=== PATIENT | female | born 1975 | race Two or more races ===

== ENCOUNTER 2024-05-28 12:53 | Emergency (ER) | payer OTHER ==
[~2024-05-28] VITALS: Ht 165.1 cm; Wt 69.5 kg
--- NOTE | 2024-05-28 13:07 | ED.PDOC ---
Cecil. trauma (HPI) HPI Comments 48 y.o female presents to the ED for a chief complaint of dizziness that started this morning around 9am. Patient describes dizziness as room spinning with no syncopal episodes today. 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 Patient was seen at a hospital yesterday for her left sided body pain and prescribed pain medication. Patient reports at the time of her fall and hospital visit, she did not feel dizzy. Patient at this time is feeling discomfort across her forehead but denies pain. 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 MANAGER TRADE MARKETING History Family History Family History: Family hx of DM, Family hx of Cancer, Family hx of heart brant Social History Smoker: Non-Smoker Alcohol: Denies ETOH Use Drugs: Denies Drug Use Lives In: Home Constitutional: denies: chills, diaphoresis, fatigue, fever, malaise, sweats, weakness, others EENTM: denies: blurred vision, double vision, ear bleeding, ear discharge, ear drainage, ear pain, ear ringing, eye pain, eye redness, hearing loss, mouth pain, mouth swelling, nasal discharge, nose bleeding, nose congestion, nose pain, photophobia, tearing, throat pain, throat swelling, voice changes, others Respiratory: denies: cough, hemoptysis, orthopnea, SOB at rest, shortness of breath, SOB with excertion, stridor, wheezing, others Cardiovascular: denies: chest pain, dizzy spells, diaphoresis, Dyspnea on exertion, edema, irregular heart beat, left arm pain, lightheadedness, palpitations, PND, syncope, others Gastrointestinal: denies: abdomen distended, abdominal pain, blood streaked bowels, constipated, diarrhea, dysphagia, difficulty swallowing, hematemesis, melena, nausea, poor appetite, poor fluid intake, rectal bleeding, rectal pain, vomiting, others Genitourinary: denies: abnormal vagina bleeding, burning, dyspareunia, dysuria, flank pain, frequency, hematuria, incontinence, pain, , vagina discharge, urgency, others Neurological: reports: dizziness; denies: fainting, headache, left sided numbness, left sided weakness, numbness, paresthesia, pre-existing deficit, right sided numbness, right sided weakness, seizure, speech problems, tingling, tremors, weakness, others Musculoskeletal: denies: back pain, gout, joint pain, joint swelling, muscle pain, muscle stiffness, neck pain, others Integumetry: denies: bruises, change in color, change in hair/nails, dryness, laceration, lesions, lumps, rash, wounds, others Allergic/Immunocompromised: denies: Difficulty Healing, Frequent Infections, Hives, Itching, others Hematologic/Lymphatic: denies: anemia, blood clots, easy bleeding, easy bruising, swollen glands, others Endocrine: denies: excessive hunger, excessive sweating, excessive thirst, excessive urination, flushing, intolerance to cold, intolerance to heat, unexplained weight gain, unexplained weight loss, others Psychiatric: denies: anxiety, bipolar disorder, depression, hopeless, panic disorder, schizophrenia, sleepless, suicidal, others All Other Systems: Reviewed and Negative Physical Exam General Appearance: No Apparent Distress HEENT: Normal ENT Inspection, Pharynx Normal, TMs Normal Neck: Full Range of Motion, Non-Tender, Normal, Normal Inspection Respiratory: Chest Non-Tender, Lungs Clear, No Accessory Muscle Use, No Respiratory Distress, Normal Breath Sounds Cardiovascular: No Edema, No JVD, No Murmur, No Gallop, Normal Peripheral Pulses, Regular Rate/Rhythm Breast Exam: Deferred Gastrointestinal: No Organomegaly, Non Tender, No Pulsatile Mass, Normal Bowel Sounds, Soft Genitalia: Deferred Pelvic: Deferred Rectal: Deferred Extremities: No calf tenderness, Normal capillary refill, Normal inspection, Normal range of motion, Non-tender, No pedal edema Musculoskeletal : Apperance: Normal Neurologic: Alert, principal strategist II-XII nml as Tested, Motor Weakness, Normal Affect, Normal Mood, No Sensory Deficits Cerebellar Function: Normal Reflexes: Normal Skin: Dry, Normal Color, Warm Lymphatic: No Adenopathy Was a procedure done? Was a procedure done?: No Differential Diagnosis Multiple Trauma: Closed Head Injury, Cerebral Contusion, Contusion X-Ray, Labs, Meds, VS Vital Signs Date Time Temp Pulse Resp B/P (MAP) Pulse Ox O2 Delivery O2 Flow Rate FiO2 05/28/24 14:07 78 14 99 Room Air* 0 21 05/28/24 13:20 98.8 87 18 131/89 (103) 98 98.8 05/28/24 13:06 81 Lab Test 05/28/24 14:57 05/28/24 13:10 Range/Units Urine Color Light-yellow Yellow Urine Clarity Turbid H Clear Urine pH 6.0 5.0-9.0 Urine Specific [place] 1.015 1.001-1.035 Urine Protein Trace H Negative Urine Ketones 1+ H Negative Urine Blood Negative Negative /uL Urine Nitrite Negative Negative Urine Bilirubin Negative Negative Urine Urobilinogen Normal Negative mg/dL Urine Leukocyte Esterase Negative Negative /uL Urine RBC 3 0 - 4 /hpf Urine Microscopic WBC 3 0-5 /HPF Urine Squamous Epithelial Cells Many <5 /hpf Urine Bacteria Few H None Seen /hpf Urine Mucus Few None Seen Urine Glucose Normal Normal mg/dL White Blood Count 7.7 4.4-10.8 10^3/uL Red Blood Count 4.61 4.0-5.20 10^6/uL Hemoglobin 13.3 12.2-16.2 g/dL Hematocrit 40.3 36.0-46.0 % Mean Corpuscular Volume 87.3 80.0-100.0 fL Mean Corpuscular Hemoglobin 28.9 28.0-32.0 pg Mean Corpuscular Hemoglobin Concent 33.0 32.0-36.0 g/dL Red Cell Distribution Width 13.5 11.8-14.3 % Platelet Count 216 140-450 10^3/uL Mean Platelet Volume 8.7 6.9-10.8 fL Neutrophils (%) (Auto) 67.1 37.0-80.0 % Lymphocytes (%) (Auto) 24.6 10.0-50.0 % Monocytes (%) (Auto) 6.0 0.0-12.0 % Eosinophils (%) (Auto) 1.9 0.0-7.0 % Basophils (%) (Auto) 0.4 0.0-2.0 % Neutrophils # (Auto) 5.1 1.6-8.6 10 ^3/uL Lymphocytes # (Auto) 1.9 0.4-5.4 10 ^3/uL Monocytes # (Auto) 0.5 0-1.3 10 ^3/uL Eosinophils # (Auto) 0.1 0-0.8 10 ^3/uL Basophils # (Auto) 0 0-0.2 10 ^3/uL Nucleated Red Blood Cells 0.0 % Sodium Level 139 136-145 mmol/L Potassium Level 4.0 3.5-5.1 mmol/L Chloride Level 107 98-107 mmol/L Carbon Dioxide Level 25 20-31 mmol/L Anion Gap 7 5-15 Blood Urea Nitrogen 7 L 9-23 mg/dL Creatinine 0.75 0.550-1.02 mg/dL Glomerular Filtration Rate Calc 98 >90 mL/min BUN/Creatinine Ratio 9.3 L 10.0-20.0 Serum Glucose 97 74-106 mg/dL Calcium Level 9.5 8.7-10.4 mg/dL Current Medications Medications (Trade) Dose Ordered Sig/Sierra Route Start Time Stop Time Status Last Admin Sodium Chloride 1,000 ml @ 1,000 mls/hr Q1H ONCE IV 05/28/24 14:15 05/28/24 15:14 DC 05/28/24 14:22 Acetaminophen/ Hydrocodone Bitart ([place] 10/325MG Tab) 1 tab ONCE ONCE PO 05/28/24 14:15 05/28/24 14:16 DC 05/28/24 14:22 EXAM: CT HEAD WITHOUT CONTRAST IMPRESSION: 1. No acute intracranial process. The CBC is within normal limits The chemistry panel is within normal limits. The patient was given [place] The patient was an IV Hep-Lock and was given normal saline at 1 L bolus. The patient's urine test is negative At this time, the patient was feeling somewhat better The patient was told to follow up with the [facility] Images Reviewed?: Images reviewed and evaluated by me Time of 1ST Reevaluation: 13:03 Reevaluation 1ST: Unchanged Time of 2ND Reevaluation: 16:07 Reevaluation 2ND: Improved Patient Education/Counseling: Diagnosis, Treatment, Prognosis, Need For Follow Up Family Education/Counseling: Diagnosis, Treatment, Prognosis, Need For Follow Up Departure 1 Departure Time of Disposition: 16:07 Impression: Primary Impression: Postconcussion syndrome Disposition: 01 HOME / SELF CARE / HOMELESS Condition: Fair Discharged With: Self, Relative Critical Care Note Critical Care Time?: No Stability Stability form required: No Heart Score Heart Score: Heart Score Response (Comments) Value History N/A 0 EKG N/A 0 Age N/A 0 Risk Factors N/A 0 Troponin N/A 0 Total 0 I personally scribed for HARJEET HERNANDEZ MD ([email or web address]) on 05/28/24 at 13:07. Electronically submitted by Wen Bolden ([employer]). I personally scribed for HARJEET HERNANDEZ MD ([email or web address]) on 05/28/24 at 15:17. Electronically submitted by Wen Bolden ([employer]). HARJEET HERNANDEZ MD May 28, 2024 13:07
[2024-05-28 13:36] LABS: Basophils # (auto) 0 10 ^3/uL (0-0.2); Basophils % (auto) 0.4 % (0.0-2.0); Eosinophils # (auto) 0.1 10 ^3/uL (0-0.8); Eosinophils % (auto) 1.9 % (0.0-7.0); Hematocrit 40.3 % (36.0-46.0); Hemoglobin 13.3 g/dL (12.2-16.2); Lymphocytes # (auto) 1.9 10 ^3/uL (0.4-5.4); Lymphocytes % (auto) 24.6 % (10.0-50.0); Mean Corpuscular Hemoglobin 28.9 pg (28.0-32.0); Mean Corpuscular Volume 87.3 fL (80.0-100.0); Monocytes # (auto) 0.5 10 ^3/uL (0-1.3); Neutrophils # (auto) 5.1 10 ^3/uL (1.6-8.6); Neutrophils % (auto) 67.1 % (37.0-80.0); Platelet Count (auto) 216 10^3/uL (140-450); Red Blood Cells 4.61 10^6/uL (4.0-5.20); Red Cell Distribution Width 13.5 % (11.8-14.3); White Blood Cell 7.7 10^3/uL (4.4-10.8)
[2024-05-28 13:41] LABS: Chloride 107 mmol/L (98-107); Sodium 139 mmol/L (136-145)
[2024-05-28 13:42] LABS: Anion Gap 7 (5-15); Calcium 9.5 mg/dL (8.7-10.4); Carbon Dioxide 25 mmol/L (20-31)
[2024-05-28 13:47] LABS: BUN/Creatinine Ratio 9.3 (10.0-20.0); Glucose 97 mg/dL (74-106)
[2024-05-28 13:53] LABS: Blood Urea Nitrogen 7 mg/dL (9-23)
--- NOTE | 2024-05-28 13:56 | ECG ---
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
[2024-05-28 14:07] VITALS: PULSE 78; RESP 14; O2SAT 99
--- NOTE | 2024-05-28 14:13 | DVH ---
EXAM: CT HEAD WITHOUT CONTRAST HISTORY: dizziness COMPARISON: None TECHNIQUE: Axial images were obtained and reformatted in coronal and sagittal planes. All CT scans at this medical facility are performed using dose modulation techniques as appropriate t o a performed exam including the following: Automated exposure control was utilized; adjustment of th e MA and/or KV according to patient size; and use of iterative reconstruction technique. CT Dose: CTDI volume is 54 mGy. Dose-length product is 970 mGy*cm FINDINGS: Supratentorial Region: No evidence for large acute territorial ischemia. No intracranial hemorrhage is noted. Posterior Fossa: No acute abnormality. Brainstem: Unremarkable. Sellar/Suprasellar Region: Unremarkable. Ventricles, Cisterns, Sulci: Age-appropriate. Orbits: Unremarkable. Paranasal Sinuses: Unremarkable. Mastoid Air Cells: Unremarkable. Vasculature: Unremarkable. Bones/Soft Tissues: No acute abnormality. Other: None. IMPRESSION: 1. No acute intracranial process.
[2024-05-28] MEDS: HYDROcodone-ACET 10/325MG TAB PO ONE (14:22)
[2024-05-28] MEDS: SODIUM CHLORIDE 0.9% 1,000 ML IV ONE (14:22)
[2024-05-28 15:17] LABS: Urine Bacteria FEW /hpf (None Seen); Urine Blood Negative /uL (Negative); Urine Clarity Turbid (Clear); Urine Color Light-Yellow (Yellow); Urine Mucus FEW (None Seen); Urine Protein, UAD TRACE (Negative); Urine Specific Gravity 1.015 (1.001-1.035); Urine Squamous Epithelial Cell MANY /hpf (<5); Urine Urobilinogen Normal (Negative); Urine WBC 3 /HPF (0-5)
[2024-05-28 16:24] VITALS: BP 131/89; PULSE 82; RESP 16; TEMP 98; O2SAT 97
== END 2024-05-28 16:24 | disposition home or self-care (01) ==
LOC: ER 12:53
DX: F07.81 Postconcussional syndrome (principal); M79.18 Myalgia, other site; Z98.51 Tubal ligation status
CPT/HCPCS: 36415; 70450; 80048; 81001; 85025; 93005; 99284; J7030

== ENCOUNTER 2024-05-31 04:14 | Emergency (ER) | payer OTHER ==
[~2024-05-31] VITALS: Ht 165.1 cm; Wt 78.0 kg
[2024-05-31 04:44] VITALS: BP 126/88; PULSE 102; RESP 13; TEMP 98.8; O2SAT 97
[2024-05-31] MEDS ORDERED: ACE3T PO (04:52)
--- NOTE | 2024-05-31 04:53 | ED.PDOC ---
HPI (NEURO) HPI Comments 48 year old female presents to ER with complaints of headache x 5 days. Patient states she's been experiencing intermittent headaches that started after hitting her head at work 5 days ago. Patient was seen and evaluated twice post head injury and had a ct of her head done that was normal along with having a cervical spine x-ray done. Patient presents back to ER today due to persistent headaches. She rates her current headache pain a 8/10 diffuse to right side of scalp with associated photophobia. Reports that she has been taking Motrin for pain with slight relief. Patient presents to ER ambulatory on arrival, alert oriented x4, with steady gait and denies any worsening symptoms since her last CT head was done. 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 History Family History Family History: Family hx of DM, Family hx of Cancer, Family hx of heart brant Social History Smoker: Non-Smoker Alcohol: Denies ETOH Use Drugs: Denies Drug Use Lives In: Home Constitutional: denies: chills, diaphoresis, fatigue, fever, malaise, sweats, weakness, others EENTM: reports: others (As stated in HPI) Respiratory: denies: cough, hemoptysis, orthopnea, SOB at rest, shortness of breath, SOB with excertion, stridor, wheezing, others Cardiovascular: denies: chest pain, dizzy spells, diaphoresis, Dyspnea on exertion, edema, irregular heart beat, left arm pain, lightheadedness, pa lpitations, PND, syncope, others Gastrointestinal: denies: abdomen distended, abdominal pain, blood streaked bowels, constipated, diarrhea, dysphagia, difficulty swallowing, hematemesis, melena, nausea, poor appetite, poor fluid intake, rectal bleeding, rectal pain, vomiting, others Genitourinary: denies: abnormal vagina bleeding, burning, dyspareunia, dysuria, flank pain, frequency, hematuria, incontinence, pain, , vagina discharge, urgency, others Neurological: denies: dizziness, fainting, headache, left sided numbness, left sided weakness, numbness, paresthesia, pre-existing deficit, right sided numbness, right sided weakness, seizure, speech problems, tingling, tremors, weakness, others Musculoskeletal: denies: back pain, gout, joint pain, joint swelling, muscle pain, muscle stiffness, neck pain, others Integumetry: denies: bruises, change in color, change in hair/nails, dryness, laceration, lesions, lumps, rash, wounds, others Allergic/Immunocompromised: denies: Difficulty Healing, Frequent Infections, Hives, Itching, others Hematologic/Lymphatic: denies: anemia, blood clots, easy bleeding, easy bruising, swollen glands, others Endocrine: denies: excessive hunger, excessive sweating, excessive thirst, excessive urination, flushing, intolerance to cold, intolerance to heat, unexplained weight gain, unexplained weight loss, others Psychiatric: denies: anxiety, bipolar disorder, depression, hopeless, panic disorder, schizophrenia, sleepless, suicidal, others Physical Exam General Appearance: No Apparent Distress HEENT: Normal ENT Inspection, PERRL/EOMI, Pharynx Normal, TMs Normal Neck: Full Range of Motion, Non-Tender, Normal Respiratory: Chest Non-Tender, Lungs Clear, No Accessory Muscle Use, No Respiratory Distress, Normal Breath Sounds Cardiovascular: No Murmur, No Gallop, Regular Rate/Rhythm Breast Exam: Deferred Gastrointestinal: NOT DONE Genitalia: Deferred Pelvic: Deferred Rectal: Deferred Extremities: No calf tenderness, Normal capillary refill, Normal range of motion Neurologic: Alert, cut off worker II-XII nml as Tested, No Motor Deficits, Normal Affect, Normal Mood, No Sensory Deficits Cerebellar Function: Normal Reflexes: Normal Skin: Dry, Normal Color, Warm Lymphatic: No Adenopathy Was a procedure done? Was a procedure done?: No Sedation Sedation?: No Differential Diagnosis (SZ) Headache: Cluster, CVA, Subarachnoid Hemorrhage, Subdural Hemorrhage, Mass Lesion, Other (fracture) X-Ray, Labs, Meds, VS Vital Signs Date Time Temp Pulse Resp B/P (MAP) Pulse Ox O2 Delivery O2 Flow Rate FiO2 05/31/24 04:44 98.8 102 13 126/88 (101) 97 98.8 05/31/24 04:44 102 13 97 Room Air 05/31/24 04:21 98.8 102 13 126/88 (101) 97 98.8 Current Medications Medications (Trade) Dose Ordered Sig/Sierra Route Start Time Stop Time Status Last Admin Ketorolac Tromethamine (Toradol Injection) 60 mg ONCE ONCE IM 05/31/24 05:00 05/31/24 05:01 DC 05/31/24 04:58 Previous chart visit reviewed Toradol 60 mg IM ordered Patient had improvement in symptoms and in no distress prior to discharge Advised on rest/no strenuous activity Workman's comp paperwork filled out Advised to follow up with PCP and workman's comp PCP in 1-2 days Patient alert and oriented x4 prior to discharge. Patient verbalized understanding and agreeable with current plan of care Advised to return to ER immediately if symptoms worsen Time of 1ST Reevaluation: 04:24 Reevaluation 1ST: N/A Time of 2ND Reevaluation: 05:30 Reevaluation 2ND: Improved Patient Education/Counseling: Diagnosis, Treatment, Prognosis, Need For Follow Up Family Education/Counseling: No Family Present Departure 1 Departure Time of Disposition: 05:32 Impression: Primary Impression: Postconcussion syndrome Disposition: 01 HOME / SELF CARE / HOMELESS Condition: Stable e-Prescriptions Acetaminophen W/ Codeine (Tylenol W/Cod #3) 1 Tab Tb 1 TAB PO Q6HPRN, #10 TAB 0 Refills Prov: CECIL RIVAS 05/31/24 Discharged With: Friend Critical Care Note Critical Care Time?: No Stability Stability form required: No Heart Score Heart Score: Heart Score Response (Comments) Value History N/A 0 EKG N/A 0 Age N/A 0 Risk Factors N/A 0 Troponin N/A 0 Total 0 CECIL RIVAS May 31, 2024 04:53
[2024-05-31] MEDS: KETOROLAC TROMETH 60MG/2ML VIAL IM ONE (04:58)
== END 2024-05-31 05:47 | disposition home or self-care (01) ==
LOC: ER 04:14
DX: F07.81 Postconcussional syndrome (principal); Z98.51 Tubal ligation status; Z87.442 Personal history of urinary calculi
CPT/HCPCS: 96372; 99283; J1885

== ENCOUNTER 2024-06-02 11:17 | Inpatient (IN) | payer OTHER ==
[~2024-06-02] VITALS: Ht 165.1 cm; Wt 84.2 kg
[~2024-06-02 11:17] MED LIST: ACE3T PO
--- NOTE | 2024-06-02 12:36 | ED.PDOC ---
History of Present Illness HPI Comments 48F presents to the ER w/ daughter band w/ no prior Hx associated to the c/c of dizziness. Daughter reports that the pt had a work incident that happened on Wednesday of 05/26/24 and was informed on Wednesday to go to the ER due form her getting dizzy and got a CT scan done. Pt states that she got blurred vision yesterday. PMHx of Kidney Stones. SHx of Tubal Ligation. Denies chills, fever, N/V/D, SOB, CP or no other associated symptoms, modifiers, recent injuries or sick contacts at this time. Chief Complaint: Dizziness Time Seen by MD: 12:00 Primary Care Provider: WORK COMP Reviewed Notes: Nurses Notes, Medications, Allergies Allergies: Coded Allergies: NO KNOWN ALLERGIES (Unverified , 05/31/24) Home Meds Active Scripts Acetaminophen W/ Codeine (Tylenol W/Cod #3) 1 Tab Tb, 1 TAB PO Q6HPRN, #10 TAB 0 Refills Prov:CECIL RIVAS 05/31/24 Information Source: Patient, Relative (Child) Mode of Arrival: Ambulatory Severity: Moderate Timing: Days Duration: Since onset, Days Prehospital treatment: None Past Medical History PAST MEDICAL HISTORY: Kidney Stones Surgical History: Tubal Ligation 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 TENDER History Family History Family History: Reviewed,noncontributory to illness, Unknown Social History Smoker: Non-Smoker Alcohol: Denies ETOH Use Drugs: Denies Drug Use Lives In: Home Constitutional: denies: chills, diaphoresis, fatigue, fever, malaise, sweats, weakness, others EENTM: reports: blurred vision; denies: double vision, ear bleeding, ear discharge, ear drainage, ear pain, ear ringing, eye pain, eye redness, hearing loss, mouth pain, mouth swelling, nasal discharge, nose bleeding, nose congestion, nose pain, photophobia, tearing, throat pain, throat swelling, voice changes, others Respiratory: denies: cough, hemoptysis, orthopnea, SOB at rest, shortness of breath, SOB with excertion, stridor, wheezing, others Cardiovascular: denies: chest pain, dizzy spells, diaphoresis, Dyspnea on exertion, edema, irregular heart beat, left arm pain, lightheadedness, palpitations, PND, syncope, others Gastrointestinal: denies: abdomen distended, abdominal pain, blood streaked bowels, constipated, diarrhea, dysphagia, difficulty swallowing, hematemesis, melena, nausea, poor appetite, poor fluid intake, rectal bleeding, rectal pain, vomiting, others Genitourinary: denies: abnormal vagina bleeding, burning, dyspareunia, dysuria, flank pain, frequency, hematuria, incontinence, pain, , vagina discharge, urgency, others Neurological: reports: dizziness; denies: fainting, headache, left sided numbness, left sided weakness, numbness, paresthesia, pre-existing deficit, right sided numbness, right sided weakness, seizure, speech problems, tingling, tremors, weakness, others Musculoskeletal: denies: back pain, gout, joint pain, joint swelling, muscle pain, muscle stiffness, neck pain, others Integumetry: denies: bruises, change in color, change in hair/nails, dryness, l aceration, lesions, lumps, rash, wounds, others Allergic/Immunocompromised: denies: Difficulty Healing, Frequent Infections, Hives, Itching, others Hematologic/Lymphatic: denies: anemia, blood clots, easy bleeding, easy bruising, swollen glands, others Endocrine: denies: excessive hunger, excessive sweating, excessive thirst, excessive urination, flushing, intolerance to cold, intolerance to heat, unexplained weight gain, unexplained weight loss, others Psychiatric: denies: anxiety, bipolar disorder, depression, hopeless, panic disorder, schizophrenia, sleepless, suicidal, others All Other Systems: Reviewed and Negative Physical Exam General Appearance: Moderate Distress, Normal HEENT: Normal ENT Inspection, Pharynx Normal, TMs Normal Neck: Full Range of Motion, Non-Tender, Normal, Normal Inspection Respiratory: Chest Non-Tender, Lungs Clear, No Accessory Muscle Use, No Respiratory Distress, Normal Breath Sounds Cardiovascular: No Edema, No JVD, No Murmur, No Gallop, Normal Peripheral Pulses, Regular Rate/Rhythm Breast Exam: Deferred Gastrointestinal: No Organomegaly, Non Tender, No Pulsatile Mass, Normal Bowel Sounds, Soft Genitalia: Deferred Pelvic: Deferred Rectal: Deferred Extremities: No calf tenderness, Normal capillary refill, Normal inspection, Normal range of motion, Non-tender, No pedal edema Musculoskeletal : Apperance: Normal Neurologic: Alert, manager school II-XII nml as Tested, No Motor Deficits, Normal Affect, Normal Mood, No Sensory Deficits Cerebellar Function: Normal Reflexes: Normal Skin: Dry, Normal Color, Warm Peripheral Pulses: 3+ Radial (R), 3+ Radial (L) Lymphatic: No Adenopathy Was a procedure done? Was a procedure done?: No Differential Dx Considerations may include: Autonomic disorder Electrolyte imbalance X-Ray, Labs, Meds, VS Vital Signs Date Time Temp Pulse Resp B/P (MAP) Pulse Ox O2 Delivery O2 Flow Rate FiO2 06/02/24 13:37 96 16 111/74 (86) 98 06/02/24 11:20 98.3 98 16 112/78 (89) 98 98.3 Lab Test 06/02/24 13:32 06/02/24 12:44 Range/Units Urine Color Colorless Yellow Urine Clarity Turbid H Clear Urine pH 5.5 5.0-9.0 Urine Specific [place] 1.009 1.001-1.035 Urine Protein Negative Negative Urine Ketones Negative Negative Urine Blood 3+ H Negative /uL Urine Nitrite Negative Negative Urine Bilirubin Negative Negative Urine Urobilinogen Normal Negative mg/dL Urine Leukocyte Esterase Negative Negative /uL Urine RBC 5 0 - 4 /hpf Urine Microscopic WBC 6 H 0-5 /HPF Urine Squamous Epithelial Cells Few <5 /hpf Urine Bacteria Few H None Seen /hpf Urine Glucose Normal Normal mg/dL White Blood Count 5.4 # 4.4-10.8 10^3/uL Red Blood Count 4.72 4.0-5.20 10^6/uL Hemoglobin 13.4 12.2-16.2 g/dL Hematocrit 40.2 36.0-46.0 % Mean Corpuscular Volume 85.3 80.0-100.0 fL Mean Corpuscular Hemoglobin 28.5 28.0-32.0 pg Mean Corpuscular Hemoglobin Concent 33.4 32.0-36.0 g/dL Red Cell Distribution Width 13.8 11.8-14.3 % Platelet Count 208 140-450 10^3/uL Mean Platelet Volume 8.5 6.9-10.8 fL Neutrophils (%) (Auto) 61.2 37.0-80.0 % Lymphocytes (%) (Auto) 29.8 10.0-50.0 % Monocytes (%) (Auto) 7.2 0.0-12.0 % Eosinophils (%) (Auto) 1.4 0.0-7.0 % Basophils (%) (Auto) 0.4 0.0-2.0 % Neutrophils # (Auto) 3.3 1.6-8.6 10 ^3/uL Lymphocytes # (Auto) 1.6 0.4-5.4 10 ^3/uL Monocytes # (Auto) 0.4 0-1.3 10 ^3/uL Eosinophils # (Auto) 0.1 0-0.8 10 ^3/uL Basophils # (Auto) 0 0-0.2 10 ^3/uL Nucleated Red Blood Cells 0.0 % Sodium Level 139 136-145 mmol/L Potassium Level 4.5 3.5-5.1 mmol/L Chloride Level 106 98-107 mmol/L Carbon Dioxide Level 26 20-31 mmol/L Anion Gap 7 5-15 Blood Urea Nitrogen 8 L 9-23 mg/dL Creatinine 0.76 0.550-1.02 mg/dL Glomerular Filtration Rate Calc 97 >90 mL/min BUN/Creatinine Ratio 10.5 10.0-20.0 Serum Glucose 93 74-106 mg/dL Calcium Level 9.7 8.7-10.4 mg/dL Patient alert. Having dizziness. Was seen recently in this hospital after a work related injury. Saturation pristine on room air. Hemoglobin within normal limits. She is ambulating. Reviewed her previous visit. CT scan recently done does not show any acute process. Possibly will need MRI. Explained to the patient. Continue monitoring. Time of 1ST Reevaluation: 12:30 Reevaluation 1ST: Unchanged Patient Education/Counseling: Diagnosis, Treatment, Prognosis Family Education/Counseling: Diagnosis, Treatment, Prognosis Departure 1 Departure Time of Disposition: 16:51 Impression: Primary Impression: Postconcussion syndrome Additional Impression: Autonomic disorder Disposition: 09 ADMITTED INPATIENT Admit to: Med Surg Condition: Guarded Critical Care Note Critical Care Time?: No Stability Stability form required: No Heart Score Heart Score: Heart Score Response (Comments) Value History N/A 0 EKG N/A 0 Age N/A 0 Risk Factors N/A 0 Troponin N/A 0 Total 0 I personally scribed for JONY SHIPLEY MD ([email or web address]) on 06/02/24 at 12:36. Electronically submitted by Martin Rodriguez ([email or web address]). I personally scribed for JONY SHIPLEY MD ([email or web address]) on 06/02/24 at 12:41. Electronically submitted by Martin Rodriguez ([email or web address]). JONY SHIPLEY MD Jun 02, 2024 12:36
[2024-06-02 12:59] LABS: Basophils # (auto) 0 10 ^3/uL (0-0.2); Basophils % (auto) 0.4 % (0.0-2.0); Eosinophils # (auto) 0.1 10 ^3/uL (0-0.8); Eosinophils % (auto) 1.4 % (0.0-7.0); Hematocrit 40.2 % (36.0-46.0); Hemoglobin 13.4 g/dL (12.2-16.2); Lymphocytes # (auto) 1.6 10 ^3/uL (0.4-5.4); Lymphocytes % (auto) 29.8 % (10.0-50.0); Mean Corpuscular Hemoglobin 28.5 pg (28.0-32.0); Mean Corpuscular Hgb Conc. 33.4 g/dL (32.0-36.0); Mean Corpuscular Volume 85.3 fL (80.0-100.0); Monocytes # (auto) 0.4 10 ^3/uL (0-1.3); Monocytes % (auto) 7.2 % (0.0-12.0); Neutrophils # (auto) 3.3 10 ^3/uL (1.6-8.6); Neutrophils % (auto) 61.2 % (37.0-80.0); Platelet Count (auto) 208 10^3/uL (140-450); Red Blood Cells 4.72 10^6/uL (4.0-5.20); Red Cell Distribution Width 13.8 % (11.8-14.3); White Blood Cell 5.4 10^3/uL (4.4-10.8)
[2024-06-02 13:07] LABS: Chloride 106 mmol/L (98-107); Potassium 4.5 mmol/L (3.5-5.1); Sodium 139 mmol/L (136-145)
[2024-06-02 13:08] LABS: Anion Gap 7 (5-15); Calcium 9.7 mg/dL (8.7-10.4); Carbon Dioxide 26 mmol/L (20-31)
[2024-06-02 13:13] LABS: BUN/Creatinine Ratio 10.5 (10.0-20.0); Glucose 93 mg/dL (74-106)
[2024-06-02 13:14] LABS: Blood Urea Nitrogen 8 mg/dL (9-23)
[2024-06-02 13:55] LABS: Urine Bacteria FEW /hpf (None Seen); Urine Blood 3+ /uL (Negative); Urine Clarity Turbid (Clear); Urine Color Colorless (Yellow); Urine Protein, UAD Negative (Negative); Urine Specific Gravity 1.009 (1.001-1.035); Urine Squamous Epithelial Cell FEW /hpf (<5); Urine Urobilinogen Normal (Negative); Urine WBC 6 /HPF (0-5); Urine pH 5.5 (5.0-9.0)
--- NOTE | 2024-06-02 18:13 | DVHHP2 ---
Admitting Diagnosis: Diplopia History of Present Illness 48F presents to the ER w/ daughter band w/ no prior Hx associated to the c/c of dizziness. Daughter reports that the pt had a work incident that happened on Wednesday of 05/26/24 and was informed on Wednesday to go to the ER due form her getting dizzy and got a CT scan done. Pt states that she got blurred vision yesterday. PMHx of Kidney Stones. SHx of Tubal Ligation. Denies chills, fever, N/V/D, SOB, CP or no other associated symptoms, modifiers, recent injuries or sick contacts at this time. 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 CASHIER History Family History Family History: Reviewed,noncontributory to illness, Unknown Social History Smoker: Non-Smoker Alcohol: Denies ETOH Use Drugs: Denies Drug Use Lives In: Home Allergies: Coded Allergies: NO KNOWN ALLERGIES (Unverified , 05/31/24) Home Meds Active Scripts Acetaminophen W/ Codeine (Tylenol W/Cod #3) 1 Tab Tb, 1 TAB PO Q6HPRN, #10 TAB 0 Refills Prov:CECIL RIVAS 05/31/24 Vital Signs Vital Signs Date Time Temp Pulse Resp B/P (MAP) Pulse Ox O2 Delivery O2 Flow Rate FiO2 06/02/24 16:51 89 16 112/82 (92) 95 06/02/24 11:20 98.3 98.3 Physical Exam Generally-40 years old woman, well nourished well developed. No apparent distress HEENT-atraumatic normocephalic Heart-regular rate and rhythm Lungs clear to auscultate bilaterally Abdomen soft nontender nondistended Musculoskeletal-no edema cyanosis Neuro-AO x3, no focal deficit Results Labs Test 06/02/24 13:32 06/02/24 12:44 Range/Units Urine Color Colorless Yellow Urine Clarity Turbid H Clear Urine pH 5.5 5.0-9.0 Urine Specific [place] 1.009 1.001-1.035 Urine Protein Negative Negative Urine Ketones Negative Negative Urine Blood 3+ H Negative /uL Urine Nitrite Negative Negative Urine Bilirubin Negative Negative Urine Urobilinogen Normal Negative mg/dL Urine Leukocyte Esterase Negative Negative /uL Urine RBC 5 0 - 4 /hpf Urine Microscopic WBC 6 H 0-5 /HPF Urine Squamous Epithelial Cells Few <5 /hpf Urine Bacteria Few H None Seen /hpf Urine Glucose Normal Normal mg/dL White Blood Count 5.4 # 4.4-10.8 10^3/uL Red Blood Count 4.72 4.0-5.20 10^6/uL Hemoglobin 13.4 12.2-16.2 g/dL Hematocrit 40.2 36.0-46.0 % Mean Corpuscular Volume 85.3 80.0-100.0 fL Mean Corpuscular Hemoglobin 28.5 28.0-32.0 pg Mean Corpuscular Hemoglobin Concent 33.4 32.0-36.0 g/dL Red Cell Distribution Width 13.8 11.8-14.3 % Platelet Count 208 140-450 10^3/uL Mean Platelet Volume 8.5 6.9-10.8 fL Neutrophils (%) (Auto) 61.2 37.0-80.0 % Lymphocytes (%) (Auto) 29.8 10.0-50.0 % Monocytes (%) (Auto) 7.2 0.0-12.0 % Eosinophils (%) (Auto) 1.4 0.0-7.0 % Basophils (%) (Auto) 0.4 0.0-2.0 % Neutrophils # (Auto) 3.3 1.6-8.6 10 ^3/uL Lymphocytes # (Auto) 1.6 0.4-5.4 10 ^3/uL Monocytes # (Auto) 0.4 0-1.3 10 ^3/uL Eosinophils # (Auto) 0.1 0-0.8 10 ^3/uL Basophils # (Auto) 0 0-0.2 10 ^3/uL Nucleated Red Blood Cells 0.0 % Sodium Level 139 136-145 mmol/L Potassium Level 4.5 3.5-5.1 mmol/L Chloride Level 106 98-107 mmol/L Carbon Dioxide Level 26 20-31 mmol/L Anion Gap 7 5-15 Blood Urea Nitrogen 8 L 9-23 mg/dL Creatinine 0.76 0.550-1.02 mg/dL Glomerular Filtration Rate Calc 97 >90 mL/min BUN/Creatinine Ratio 10.5 10.0-20.0 Serum Glucose 93 74-106 mg/dL Calcium Level 9.7 8.7-10.4 mg/dL Primary Diagnosis Traumatic of the head Concussion Rule out stroke Plan CT head negative Check brain MRI to rule out stroke Neuro check per floor protocol Neurology consult Full code Regular diet Lovenox for DVT prophylaxis GI prophylaxis needed Plan discussed with: Patient Problems List: (1) Postconcussion syndrome Status: Acute Date of Service: Jun 02, 2024 Billing Provider: JACLYN RAMIREZ MD Common Visit Codes: [id number] INP/OBS CARE (MOD) JACLYN RAMIREZ MD Jun 02, 2024 18:13
[2024-06-02] MEDS ORDERED: DOCUSATE SOD 100 MG CAP PO PRN (18:15)
[2024-06-02] MEDS ORDERED: ONDANSETRON HCL 4 MG/2 ML VIAL IV PRN (18:15)
[2024-06-02 19:29] VITALS: PULSE 87; RESP 17; O2SAT 97
[2024-06-02] MEDS: SODIUM CHLOR 0.9% PF (SALINE LOCK) 10ML VIAL/SYR IV SCH (22:27)
[2024-06-02 23:50] VITALS: BP 115/81; PULSE 84; RESP 20; TEMP 97.7; O2SAT 97
[2024-06-03] VITALS (8 sets, daily range): BP systolic 92–125; BP diastolic 68–86; PULSE 74–107; RESP 16–18; TEMP 97.7–98.4; O2SAT 97–99
[2024-06-03] MEDS: ACETAMINOPHEN 325 MG TAB PO PRN (03:38)
[2024-06-03] MEDS ORDERED: CYCL-614 PO (03:52)
[2024-06-03] MEDS ORDERED: IBUP-1456 PO (03:52)
[2024-06-03 04:50] LABS: Basophils # (auto) 0 10 ^3/uL (0-0.2); Basophils % (auto) 0.3 % (0.0-2.0); Eosinophils # (auto) 0.2 10 ^3/uL (0-0.8); Eosinophils % (auto) 2.7 % (0.0-7.0); Hematocrit 36.4 % (36.0-46.0); Hemoglobin 12.2 g/dL (12.2-16.2); Lymphocytes # (auto) 2.4 10 ^3/uL (0.4-5.4); Lymphocytes % (auto) 37.6 % (10.0-50.0); Mean Corpuscular Hemoglobin 28.7 pg (28.0-32.0); Mean Corpuscular Hgb Conc. 33.6 g/dL (32.0-36.0); Mean Corpuscular Volume 85.5 fL (80.0-100.0); Monocytes # (auto) 0.5 10 ^3/uL (0-1.3); Monocytes % (auto) 8.5 % (0.0-12.0); Neutrophils # (auto) 3.2 10 ^3/uL (1.6-8.6); Neutrophils % (auto) 50.9 % (37.0-80.0); Nucleated Red Blood Cells % 0.1 %; Platelet Count (auto) 195 10^3/uL (140-450); Red Blood Cells 4.26 10^6/uL (4.0-5.20); Red Cell Distribution Width 13.6 % (11.8-14.3); White Blood Cell 6.3 10^3/uL (4.4-10.8)
[2024-06-03 05:09] LABS: Alanine Aminotransferase 17 U/L (7-40); Albumin 3.9 g/dL (3.2-4.8); Alkaline Phosphatase 55 U/L (46-116); Anion Gap 7 (5-15); BUN/Creatinine Ratio 11.8 (10.0-20.0); Bilirubin, Total 0.4 mg/dL (0.2-1.0); Calcium 9.1 mg/dL (8.7-10.4); Carbon Dioxide 26 mmol/L (20-31); Chloride 105 mmol/L (98-107); Glucose 92 mg/dL (74-106); Potassium 3.8 mmol/L (3.5-5.1); Sodium 138 mmol/L (136-145)
[2024-06-03 05:56] LABS: Aspartate Aminotransferase 10 U/L (13-40); Blood Urea Nitrogen 8 mg/dL (9-23)
[2024-06-03] MEDS: ENOXAPARIN SOD 40 MG/0.4 ML SYRINGE SC SCH (09:12)
--- NOTE | 2024-06-03 12:05 | DVH ---
MRI BRAIN HEAD WO CONTRAST INDICATION: diplopia, headache r/o stroke : 48 old Female diplopia, headache r/o stroke EXAM DATE: 06/03/2024 11:28 AM COMPARISON: 05/28 PROCEDURE: Using a 1.5 Kenzie scanner, multisequence multiplanar imaging of the brain was obtained. FINDINGS: The brainshows normal morphology and signal characteristics. No abnormal T2 hyperintensity, diffusion restriction, or susceptibility hypointensity is present. The ventricles are normal in size . The midline structures are intact. The major intracranial flow voids are present. The aerated space s are normal. The orbital contents and extracranial soft tissues appear normal. IMPRESSION: No acute abnormal MRI findings of the brain.
--- NOTE | 2024-06-03 12:22 | DVHPN2 ---
Reviewed: Care Plan, H&P, Labs, Medications, Previous Orders, Radiology Changes from previous H/P or p: No Changes Objective Vitals Vital Signs Date Time Temp Pulse Resp B/P (MAP) Pulse Ox O2 Delivery O2 Flow Rate FiO2 06/03/24 08:16 98.4 76 16 125/86 (99) 98 98.4 06/03/24 00:46 Room Air* 0 21 Medications Current Medications Medications Dose Ordered Sig/Sierra Route Start Time Stop Time Status Last Admin Dose Admin Sodium Chloride 10 ml Q8HR IV 06/02/24 22:00 06/03/24 06:00 10 ML Docusate Sodium 100 mg BIDPRN PRN PO 06/02/24 18:15 Acetaminophen 650 mg Q6HP PRN PO 06/02/24 18:15 06/03/24 10:43 650 MG Acetaminophen/ Hydrocodone Bitart 1 tab Q4HP PRN PO 06/02/24 18:15 Ondansetron HCl 4 mg Q4HP PRN IV 06/02/24 18:15 Enoxaparin Sodium 40 mg DAILY SC 06/03/24 10:00 06/03/24 09:12 40 MG Laboratory Results Laboratory Tests 06/03/24 04:23 Chemistry Test 06/02/24 12:44 06/03/24 04:23 Calcium Level 9.7 mg/dL (8.7-10.4) 9.1 mg/dL (8.7-10.4) Albumin 3.9 g/dL (3.2-4.8) Total Protein 6.0 g/dL (5.7-8.2) LFT Test 06/03/24 04:23 Alanine Aminotransferase (ALT) 17 U/L (7-40) Alkaline Phosphatase 55 U/L (46-116) Aspartate Amino Transferase (AST) 10 U/L (13-40) L Total Bilirubin 0.4 mg/dL (0.2-1.0) Urinalysis Test 06/02/24 13:32 Urine Color Colorless (Yellow) Urine Clarity Turbid (Clear) H Urine pH 5.5 (5.0-9.0) Urine Specific [place] 1.009 (1.001-1.035) Urine Protein Negative (Negative) Urine Ketones Negative (Negative) Urine Blood 3+ /uL (Negative) H Urine Nitrite Negative (Negative) Urine Bilirubin Negative (Negative) Urine Urobilinogen Normal mg/dL (Negative) Urine Leukocyte Esterase Negative /uL (Negative) Urine RBC 5 /hpf (0 - 4) Urine Microscopic WBC 6 /HPF (0-5) H Urine Squamous Epithelial Cells Few /hpf (<5) Urine Bacteria Few /hpf (None Seen) H Urine Glucose Normal mg/dL (Normal) Labs and/or images reviewed: Labs reviewed by me, Image(s) reviewed by me Assessment/Plan Assessment/Plan Dizziness Concussion injury: MRI brain negative for any acute pathology: Consult for Neurology Dr. Hollis History of injury at work 05-26-24 Plan discussed with: Patient Date of Service: Jun 03, 2024 Billing Provider: CHERRIE SANCHEZ MD Common Visit Codes: [id number] INP/OBS CARE(HIGH) CHERRIE SANCHEZ MD Jun 03, 2024 12:22
[2024-06-03] MEDS: SODIUM CHLORIDE 0.9% 1,000 ML IV SCH (15:00)
--- NOTE | 2024-06-03 18:08 | DVHINCON2 ---
Date of service: Jun 03, 2024 History of Present Illness [place] Neuro Note # Demographics Consult Type: General Neurology Patient Location: Inpatient First Name: Aliza Last Name: Kathya Date of : 1975 Age: 48 Gender: Female Facility: [facility] Time of Initial Page (): 06/03/2024 17:53 Time of Return Call (): 06/03/2024 17:53 # HPI History: 48 year-old female with headache, blurred vision, word-finding difficulty, and left-sided paresthesias after a fall with head stroke yesterday. # Scores Time of exam and NIHSS (): 06/03/2024 18:00 Level of Consciousness 1a: [0] = Alert; keenly responsive LOC Questions 1b: [0] = Answers both questions correctly LOC Commands 1c: [0] = Performs both tasks correctly Best Gaze 2: [0] = Normal Visual 3: [0] = No visual loss Facial Palsy 4: [0] = Normal symmetrical movements Motor Arm Left 5a: [1] = Drift Motor Arm Right 5b: [0] = No drift Motor Leg Left 6a: [1] = Drift Motor Leg Right 6b: [0] = No drift Limb Ataxia 7: [0] = Absent Sensory 8: [0] = Normal Best Language 9: [0] = No aphasia Dysarthria 10: [0] = Normal Extinction and Inattention 11: [0] = No abnormality NIHSS Total: 2 # Exam Vitals: vital signs reviewed # Data Head CT: - no bleed MRI: no acute ischemia # Assessment Impression: Headache, blurred vision, word-finding difficulty, and left-sided paresthesias - suspect post-concussive syndrome, imaging negative for stroke # Plan Other: - I have discussed my recommendations with the referring provider Additional Recommendations: Physical and cognitive rest until neurological symptoms resolve. Disposition: continue admission # Logistics Attestation of consult completion: The patient is located at: [facility]. Facility staff participated in the visit. I performed this telemedicine visit from my offsite office utilizing interactive 2 way audio and visual telecommunication technology. Total time spent in telemedicine encounter: I spent 15 minutes reviewing clinical data and/or imaging, obtaining history, examining the patient, communicating with the onsite care team, and in preparation of this report. # Demographics First Name: Aliza Last Name: Kathya Facility: [facility] Electronically signed at 06/03/2024 18:05 ([place] Time) by Acosta Cosby MD Family History: FH: kidney disease G8 MOTHER FH: myocardial infarction G8 FATHER FH: uterine cancer G8 SISTER Allergies: Coded Allergies: NO KNOWN ALLERGIES (Unverified , 05/31/24) Home Meds Active Scripts Acetaminophen W/ Codeine (Tylenol W/Cod #3) 1 Tab Tb, 1 TAB PO Q6HPRN, #10 TAB 0 Refills Prov:CECIL RIVAS 05/31/24 Reported Medications Cyclobenzaprine HCl (Cyclobenzaprine Hydrochlo) 5 Mg Tab, 5 MG PO, TAB 06/03/24 Ibuprofen (Ibuprofen) 800 Mg Tab, 800 MG PO for pain, MG 06/03/24 Current Medications Current Medications Medications (Trade) Dose Ordered Sig/Sierra Route PRN Reason Start Time Stop Time Status Last Admin Sodium Chloride (Saline Lock Ns) 10 ml Q8HR IV 06/02/24 22:00 06/03/24 13:58 Enoxaparin Sodium (Lovenox) 40 mg DAILY SC 06/03/24 10:00 06/03/24 09:12 Sodium Chloride 1,000 ml @ 150 mls/hr Q6H40M IV 06/03/24 15:00 06/03/24 15:00 Vital Signs Vital Signs Date Time Temp Pulse Resp B/P (MAP) Pulse Ox O2 Delivery O2 Flow Rate FiO2 06/03/24 17:50 81 18 98 Room Air* 0 21 06/03/24 17:10 98.1 117/83 (94) 98.1 Labs/Diagnostic Data Labs Test 06/03/24 04:23 06/02/24 13:32 Range/Units White Blood Count 6.3 4.4-10.8 10^3/uL Red Blood Count 4.26 4.0-5.20 10^6/uL Hemoglobin 12.2 12.2-16.2 g/dL Hematocrit 36.4 36.0-46.0 % Mean Corpuscular Volume 85.5 80.0-100.0 fL Mean Corpuscular Hemoglobin 28.7 28.0-32.0 pg Mean Corpuscular Hemoglobin Concent 33.6 32.0-36.0 g/dL Red Cell Distribution Width 13.6 11.8-14.3 % Platelet Count 195 140-450 10^3/uL Mean Platelet Volume 8.8 6.9-10.8 fL Neutrophils (%) (Auto) 50.9 37.0-80.0 % Lymphocytes (%) (Auto) 37.6 10.0-50.0 % Monocytes (%) (Auto) 8.5 0.0-12.0 % Eosinophils (%) (Auto) 2.7 0.0-7.0 % Basophils (%) (Auto) 0.3 0.0-2.0 % Neutrophils # (Auto) 3.2 1.6-8.6 10 ^3/uL Lymphocytes # (Auto) 2.4 0.4-5.4 10 ^3/uL Monocytes # (Auto) 0.5 0-1.3 10 ^3/uL Eosinophils # (Auto) 0.2 0-0.8 10 ^3/uL Basophils # (Auto) 0 0-0.2 10 ^3/uL Nucleated Red Blood Cells 0.1 % Sodium Level 138 136-145 mmol/L Potassium Level 3.8 3.5-5.1 mmol/L Chloride Level 105 98-107 mmol/L Carbon Dioxide Level 26 20-31 mmol/L Anion Gap 7 5-15 Blood Urea Nitrogen 8 L 9-23 mg/dL Creatinine 0.68 0.550-1.02 mg/dL Glomerular Filtration Rate Calc 107 >90 mL/min BUN/Creatinine Ratio 11.8 10.0-20.0 Serum Glucose 92 74-106 mg/dL Calcium Level 9.1 8.7-10.4 mg/dL Total Bilirubin 0.4 0.2-1.0 mg/dL Aspartate Amino Transferase (AST) 10 L 13-40 U/L Alanine Aminotransferase (ALT) 17 7-40 U/L Alkaline Phosphatase 55 46-116 U/L Total Protein 6.0 5.7-8.2 g/dL Albumin 3.9 3.2-4.8 g/dL Urine Color Colorless Yellow Urine Clarity Turbid H Clear Urine pH 5.5 5.0-9.0 Urine Specific [place] 1.009 1.001-1.035 Urine Protein Negative Negative Urine Ketones Negative Negative Urine Blood 3+ H Negative /uL Urine Nitrite Negative Negative Urine Bilirubin Negative Negative Urine Urobilinogen Normal Negative mg/dL Urine Leukocyte Esterase Negative Negative /uL Urine RBC 5 0 - 4 /hpf Urine Microscopic WBC 6 H 0-5 /HPF Urine Squamous Epithelial Cells Few <5 /hpf Urine Bacteria Few H None Seen /hpf Urine Glucose Normal Normal mg/dL Plan discussed with: Patient ACOSTA COSBY MD Jun 03, 2024 18:08
[2024-06-03] MEDS: HYDROcodone-ACET 5/325MG TAB PO PRN (22:18)
[2024-06-04] VITALS (7 sets, daily range): BP systolic 98–139; BP diastolic 62–80; PULSE 67–92; RESP 16–18; TEMP 97.6–98.1; O2SAT 96–99
[2024-06-04 06:14] LABS: Basophils # (auto) 0 10 ^3/uL (0-0.2); Basophils % (auto) 0.3 % (0.0-2.0); Eosinophils # (auto) 0.1 10 ^3/uL (0-0.8); Eosinophils % (auto) 2.1 % (0.0-7.0); Hematocrit 37.9 % (36.0-46.0); Hemoglobin 12.5 g/dL (12.2-16.2); Lymphocytes # (auto) 2.3 10 ^3/uL (0.4-5.4); Lymphocytes % (auto) 35.9 % (10.0-50.0); Mean Corpuscular Hemoglobin 28.1 pg (28.0-32.0); Mean Corpuscular Hgb Conc. 32.9 g/dL (32.0-36.0); Mean Corpuscular Volume 85.5 fL (80.0-100.0); Monocytes # (auto) 0.5 10 ^3/uL (0-1.3); Monocytes % (auto) 7.7 % (0.0-12.0); Neutrophils # (auto) 3.4 10 ^3/uL (1.6-8.6); Nucleated Red Blood Cells % 0.1 %; Platelet Count (auto) 184 10^3/uL (140-450); Red Blood Cells 4.43 10^6/uL (4.0-5.20); Red Cell Distribution Width 13.5 % (11.8-14.3); White Blood Cell 6.3 10^3/uL (4.4-10.8)
[2024-06-04 06:30] LABS: Alanine Aminotransferase 17 U/L (7-40); Albumin 3.7 g/dL (3.2-4.8); Alkaline Phosphatase 59 U/L (46-116); Anion Gap 6 (5-15); BUN/Creatinine Ratio 8.5 (10.0-20.0); Calcium 8.7 mg/dL (8.7-10.4); Carbon Dioxide 24 mmol/L (20-31); Glucose 92 mg/dL (74-106); Potassium 3.8 mmol/L (3.5-5.1); Sodium 139 mmol/L (136-145); Total Protein 5.7 g/dL (5.7-8.2)
[2024-06-04 06:31] LABS: Bilirubin, Total 0.5 mg/dL (0.2-1.0)
[2024-06-04 07:06] LABS: Aspartate Aminotransferase 10 U/L (13-40); Blood Urea Nitrogen 6 mg/dL (9-23); Chloride 109 mmol/L (98-107)
--- NOTE | 2024-06-04 11:27 | DVHPN2 ---
Reviewed: Care Plan, H&P, Labs, Medications, Previous Orders, Radiology Changes from previous H/P or p: No Changes Objective Vitals Vital Signs Date Time Temp Pulse Resp B/P (MAP) Pulse Ox O2 Delivery O2 Flow Rate FiO2 06/04/24 09:08 97.9 77 16 109/76 (87) 99 97.9 06/03/24 20:00 Room Air* 0 21 Intake/Output Intake and Output 06/04/24 07:00 Intake Total 1000 ml Balance 1000 ml Intake IV Total 1000 ml Medications Current Medications Medications Dose Ordered Sig/Sierra Route Start Time Stop Time Status Last Admin Dose Admin Sodium Chloride 10 ml Q8HR IV 06/02/24 22:00 06/04/24 06:11 10 ML Docusate Sodium 100 mg BIDPRN PRN PO 06/02/24 18:15 Acetaminophen 650 mg Q6HP PRN PO 06/02/24 18:15 06/03/24 10:43 650 MG Acetaminophen/ Hydrocodone Bitart 1 tab Q4HP PRN PO 06/02/24 18:15 06/04/24 04:34 1 TAB Ondansetron HCl 4 mg Q4HP PRN IV 06/02/24 18:15 Enoxaparin Sodium 40 mg DAILY SC 06/03/24 10:00 06/04/24 11:06 40 MG Sodium Chloride 1,000 ml @ 150 mls/hr Q6H40M IV 06/03/24 15:00 06/04/24 04:30 150 MLS/HR Laboratory Results Laboratory Tests 06/04/24 05:36 Chemistry Test 06/04/24 05:36 Albumin 3.7 g/dL (3.2-4.8) Calcium Level 8.7 mg/dL (8.7-10.4) Total Protein 5.7 g/dL (5.7-8.2) LFT Test 06/04/24 05:36 Alanine Aminotransferase (ALT) 17 U/L (7-40) Alkaline Phosphatase 59 U/L (46-116) Aspartate Amino Transferase (AST) 10 U/L (13-40) L Total Bilirubin 0.5 mg/dL (0.2-1.0) Urinalysis Test 06/02/24 13:32 Urine Color Colorless (Yellow) Urine Clarity Turbid (Clear) H Urine pH 5.5 (5.0-9.0) Urine Specific [place] 1.009 (1.001-1.035) Urine Protein Negative (Negative) Urine Ketones Negative (Negative) Urine Blood 3+ /uL (Negative) H Urine Nitrite Negative (Negative) Urine Bilirubin Negative (Negative) Urine Urobilinogen Normal mg/dL (Negative) Urine Leukocyte Esterase Negative /uL (Negative) Urine RBC 5 /hpf (0 - 4) Urine Microscopic WBC 6 /HPF (0-5) H Urine Squamous Epithelial Cells Few /hpf (<5) Urine Bacteria Few /hpf (None Seen) H Urine Glucose Normal mg/dL (Normal) Labs and/or images reviewed: Labs reviewed by me, Image(s) reviewed by me Assessment/Plan Assessment/Plan Dizziness Concussion injury: MRI brain negative for any acute pathology: Consult for Neurology Dr. Hollis History of injury at work 05-26-[address] Tele psych consult by Dr. Acosta Cosby: "Headache, blurred vision, word- finding difficulty, and left-sided paresthesias - suspect post-concussive syndrome, imaging negative for stroke" [place] for the pain and observation Tingling and numbness in bilateral hands and feet, new onset, repeat tele neurology consult placed Possible anxiety: History of anxiety in the past: Xanax 1 mg PO TID Neck pain: CT C-spine ordered MEME [place] at bedside Plan discussed with: Patient My Orders Orders - CHERRIE SANCHEZ MD Procedure Category Date Status Time * Neurology Consult CONS 06/03/24 Transmitted 12:19 Sodium Chloride 0.9% PHA 06/03/24 In Process 15:00 Date of Service: Jun 04, 2024 Billing Provider: CHERRIE SANCHEZ MD Common Visit Codes: [id number] INP/OBS CARE(HIGH) CHERRIE SANCHEZ MD Jun 04, 2024 11:27
--- NOTE | 2024-06-04 12:24 | DVHINCON2 ---
Date of service: Jun 04, 2024 Referring Physician Hospitalist Family History: FH: kidney disease G8 MOTHER FH: myocardial infarction G8 FATHER FH: uterine cancer G8 SISTER Allergies: Coded Allergies: NO KNOWN ALLERGIES (Unverified , 05/31/24) Home Meds Active Scripts Acetaminophen W/ Codeine (Tylenol W/Cod #3) 1 Tab Tb, 1 TAB PO Q6HPRN, #10 TAB 0 Refills Prov:CECIL RIVAS 05/31/24 Reported Medications Cyclobenzaprine HCl (Cyclobenzaprine Hydrochlo) 5 Mg Tab, 5 MG PO, TAB 06/03/24 Ibuprofen (Ibuprofen) 800 Mg Tab, 800 MG PO for pain, MG 06/03/24 Current Medications Current Medications Medications (Trade) Dose Ordered Sig/Sierra Route PRN Reason Start Time Stop Time Status Last Admin Sodium Chloride 1,000 ml @ 150 mls/hr Q6H40M IV 06/03/24 15:00 06/04/24 04:30 Alprazolam (Xanax Tablet) 1 mg TID PO 06/04/24 14:00 Vital Signs Vital Signs Date Time Temp Pulse Resp B/P (MAP) Pulse Ox O2 Delivery O2 Flow Rate FiO2 06/04/24 09:08 97.9 77 16 109/76 (87) 99 97.9 06/03/24 20:00 Room Air* 0 21 Labs/Diagnostic Data Labs Test 06/04/24 05:36 06/02/24 13:32 Range/Units White Blood Count 6.3 4.4-10.8 10^3/uL Red Blood Count 4.43 4.0-5.20 10^6/uL Hemoglobin 12.5 12.2-16.2 g/dL Hematocrit 37.9 36.0-46.0 % Mean Corpuscular Volume 85.5 80.0-100.0 fL Mean Corpuscular Hemoglobin 28.1 28.0-32.0 pg Mean Corpuscular Hemoglobin Concent 32.9 32.0-36.0 g/dL Red Cell Distribution Width 13.5 11.8-14.3 % Platelet Count 184 140-450 10^3/uL Mean Platelet Volume 8.8 6.9-10.8 fL Neutrophils (%) (Auto) 54.0 37.0-80.0 % Lymphocytes (%) (Auto) 35.9 10.0-50.0 % Monocytes (%) (Auto) 7.7 0.0-12.0 % Eosinophils (%) (Auto) 2.1 0.0-7.0 % Basophils (%) (Auto) 0.3 0.0-2.0 % Neutrophils # (Auto) 3.4 1.6-8.6 10 ^3/uL Lymphocytes # (Auto) 2.3 0.4-5.4 10 ^3/uL Monocytes # (Auto) 0.5 0-1.3 10 ^3/uL Eosinophils # (Auto) 0.1 0-0.8 10 ^3/uL Basophils # (Auto) 0 0-0.2 10 ^3/uL Nucleated Red Blood Cells 0.1 % Sodium Level 139 136-145 mmol/L Potassium Level 3.8 3.5-5.1 mmol/L Chloride Level 109 H 98-107 mmol/L Carbon Dioxide Level 24 20-31 mmol/L Anion Gap 6 5-15 Blood Urea Nitrogen 6 L 9-23 mg/dL Creatinine 0.71 0.550-1.02 mg/dL Glomerular Filtration Rate Calc 105 >90 mL/min BUN/Creatinine Ratio 8.5 L 10.0-20.0 Serum Glucose 92 74-106 mg/dL Calcium Level 8.7 8.7-10.4 mg/dL Total Bilirubin 0.5 0.2-1.0 mg/dL Aspartate Amino Transferase (AST) 10 L 13-40 U/L Alanine Aminotransferase (ALT) 17 7-40 U/L Alkaline Phosphatase 59 46-116 U/L Total Protein 5.7 5.7-8.2 g/dL Albumin 3.7 3.2-4.8 g/dL Urine Color Colorless Yellow Urine Clarity Turbid H Clear Urine pH 5.5 5.0-9.0 Urine Specific [place] 1.009 1.001-1.035 Urine Protein Negative Negative Urine Ketones Negative Negative Urine Blood 3+ H Negative /uL Urine Nitrite Negative Negative Urine Bilirubin Negative Negative Urine Urobilinogen Normal Negative mg/dL Urine Leukocyte Esterase Negative Negative /uL Urine RBC 5 0 - 4 /hpf Urine Microscopic WBC 6 H 0-5 /HPF Urine Squamous Epithelial Cells Few <5 /hpf Urine Bacteria Few H None Seen /hpf Urine Glucose Normal Normal mg/dL Plan/Recommendation [facility] Neuro Note # Demographics Consult Type: General Neurology Patient Location: Inpatient First Name: RASHAD Last Name: WINTER Date of : 1975 Age: 48 Gender: Female Facility: [facility] Time of Initial Page (): 06/04/2024 11:39 Time of Return Call (): 06/04/2024 11:40 # HPI History: 48 year old female that I was requested to evaluate for a neurologic concern. The patient this am is reporting numbness in bilateral arms and feet. She is in the hospital for dizziness and double vision and was admitted for rule out stroke. Right before 0900 she began experiencing a weird sensation in her hands. Then after awhile after rubbing them together, the feeling started coming back. Then, it started going away again. While she was standing the same thing started happe jaimie to her feet. The patient's daughter who is at bedside couldn't feel the coldness and she couldn't feel it even with pinching. The symptoms are coming and going. # Exam Time of Exam (): 06/04/2024 12:12 Vitals: vital signs reviewed Mental Status: - awake - alert and oriented x 3 - follows commands Language: - no aphasia - no dysarthria - normal speech Cranial Nerves: - no facial droop - normal facial sensation - no dysarthria Motor: - normal strength - normal bulk # ROS Neurologic: - see HPI # Assessment Impression: 1. Waxing and waning distal paresthesias The patient is experiencing new onset symptoms of waxing and waning numbness/tinglig in the hands and feet. This is unusual and doesn't conform to any normal acute neurologic syndrome. The pattern is not consistent with a peripheral neuropathy given the waxing and waning and sudden onset. I am not # Plan Other: - If patient has any neurological deterioration please call me back immediately Additional Recommendations: SUMMARY: == no specific neurologic evaluation necessary for these new symptoms == this shouldn't have anything to do with her current presentation as there is no unifying diagnosis to cause this. No medications are present that could cause these symptoms == if symptoms persist, follow-up with primary care for further eval (i.e. EMG) # Logistics Attestation of consult completion: The patient is located at: [facility]. Facility staff participated in the visit. I performed this telemedicine visit from my offsite office utilizing interactive 2 way audio and visual telecommunication technology. Consent: Verbal consent was obtained from the patient and/or family for this encounter. Total time spent in telemedicine encounter: I spent 20 minutes reviewing clinical data and/or imaging, obtaining history, examining the patient, communicating with the onsite care team, and in preparation of this report. Critical Care time: 15 minutes of this encounter were critical care time. Due to a high probability of clinically significant, life-threatening neurologic deterioration, the patient required my highest level of preparedness to intervene emergently. I spent this critical care time managing the patient in conjunction with on-site providers who requested my consultation. In addition to the above, this critical care time included recommendation and review of studies, including imaging; arranging an urgent treatment and management plan with on-site providers; evaluation of patient's response to treatment; and documentation. This critical care time was performed to assess and manage the high probability of imminent, life-threatening deterioration that could result in neurologic catastrophe. # Demographics First Name: RASHAD Last Name: WINTER Facility: [facility] Plan discussed with: Patient FERNANDO PETERSON MD Jun 04, 2024 12:23
[2024-06-04] MEDS: ALPRAZolam 0.5 MG TAB PO SCH (14:50)
--- NOTE | 2024-06-04 15:58 | DVH ---
EXAM: CT CERVICAL WITHOUT CONTRAST INDICATION: Neck pain after fall at work EXAM DATE: 06/04/2024 02:36 PM COMPARISON: None TECHNIQUE: Multiple axial CT images of the cervical spine were obtained using bone algorithm. Sagitta l and coronal reformatting was done. Bone and soft tissue windows were reviewed. Radiation Dose Information: CT Dose: CTDI volume is 22.76 mGy. Dose-length product is 552.62 mGy*cm FINDINGS: The cervical alignment is intact. Reversal of the cervical lordosis. No acute cervical spine fracture is identified. The vertebral body heights are intact. No suspicious osseous lesions are identified. Multilevel intervertebral disc space narrowing. No significant spinal stenosis. No significant neural foraminal stenosis. There is no prevertebral soft tissue swelling. Lung apices are clear. IMPRESSION: 1. No evidence of acute cervical spine fracture or traumatic malalignment. All CT scans at this medical facility are performed using dose modulation techniques as appropriate t o a performed exam including the following: Automated exposure control was utilized; adjustment of th e MA and/or KV according to patient size; and use of iterative reconstruction technique.
[2024-06-05 01:00] VITALS: BP 97/57; PULSE 77; RESP 17; TEMP 98.1; O2SAT 97
[2024-06-05 05:00] VITALS: BP 94/55; PULSE 79; RESP 16; TEMP 97.6; O2SAT 98
[2024-06-05 06:25] LABS: Basophils # (auto) 0 10 ^3/uL (0-0.2); Basophils % (auto) 0.2 % (0.0-2.0); Eosinophils # (auto) 0.1 10 ^3/uL (0-0.8); Eosinophils % (auto) 2.4 % (0.0-7.0); Hematocrit 34.4 % (36.0-46.0); Hemoglobin 11.5 g/dL (12.2-16.2); Lymphocytes # (auto) 2.1 10 ^3/uL (0.4-5.4); Lymphocytes % (auto) 36.7 % (10.0-50.0); Mean Corpuscular Hemoglobin 28.7 pg (28.0-32.0); Mean Corpuscular Hgb Conc. 33.5 g/dL (32.0-36.0); Mean Corpuscular Volume 85.6 fL (80.0-100.0); Monocytes # (auto) 0.4 10 ^3/uL (0-1.3); Monocytes % (auto) 7.5 % (0.0-12.0); Neutrophils % (auto) 53.2 % (37.0-80.0); Nucleated Red Blood Cells % 0.1 %; Platelet Count (auto) 180 10^3/uL (140-450); Red Blood Cells 4.01 10^6/uL (4.0-5.20); Red Cell Distribution Width 13.5 % (11.8-14.3); White Blood Cell 5.7 10^3/uL (4.4-10.8)
[2024-06-05 06:29] LABS: Alanine Aminotransferase 11 U/L (7-40); Albumin 3.3 g/dL (3.2-4.8); Anion Gap 8 (5-15); Carbon Dioxide 24 mmol/L (20-31); Glucose 89 mg/dL (74-106); Sodium 140 mmol/L (136-145)
[2024-06-05 06:30] LABS: Bilirubin, Total 0.4 mg/dL (0.2-1.0)
[2024-06-05 06:35] LABS: Alkaline Phosphatase 44 U/L (46-116); Aspartate Aminotransferase < 8 U/L (13-40); Blood Urea Nitrogen 6 mg/dL (9-23); Calcium 8.5 mg/dL (8.7-10.4); Chloride 108 mmol/L (98-107); Total Protein 5.3 g/dL (5.7-8.2)
[2024-06-05 08:00] VITALS: PULSE 65; RESP 17; O2SAT 97
[2024-06-05 08:38] VITALS: BP 106/66; PULSE 65; RESP 17; TEMP 98.1; O2SAT 97
[2024-06-05] MEDS ORDERED: ALPR1TAB2 PO (12:48)
[2024-06-05] MEDS ORDERED: HYDR-4902 PO (12:48)
--- NOTE | 2024-06-05 12:52 | DVHPN2 ---
Reviewed: Care Plan, H&P, Labs, Medications, Previous Orders, Radiology Changes from previous H/P or p: No Changes Objective Vitals Vital Signs Date Time Temp Pulse Resp B/P (MAP) Pulse Ox O2 Delivery O2 Flow Rate FiO2 06/05/24 08:38 98.1 65 17 106/66 (79) 97 98.1 06/05/24 08:00 Room Air* 0 21 Intake/Output Intake and Output 06/05/24 07:00 Intake Total 1200 ml Balance 1200 ml Intake IV Total 1200 ml Medications Current Medications Medications Dose Ordered Sig/Sierra Route Start Time Stop Time Status Last Admin Dose Admin Sodium Chloride 10 ml Q8HR IV 06/02/24 22:00 06/05/24 05:16 10 ML Docusate Sodium 100 mg BIDPRN PRN PO 06/02/24 18:15 Acetaminophen 650 mg Q6HP PRN PO 06/02/24 18:15 06/03/24 10:43 650 MG Acetaminophen/ Hydrocodone Bitart 1 tab Q4HP PRN PO 06/02/24 18:15 06/04/24 04:34 1 TAB Ondansetron HCl 4 mg Q4HP PRN IV 06/02/24 18:15 Enoxaparin Sodium 40 mg DAILY SC 06/03/24 10:00 06/05/24 09:52 40 MG Sodium Chloride 1,000 ml @ 150 mls/hr Q6H40M IV 06/03/24 15:00 06/05/24 05:16 150 MLS/HR Alprazolam 1 mg TID PO 06/04/24 14:00 06/04/24 21:36 1 MG Laboratory Results Laboratory Tests 06/05/24 05:44 Chemistry Test 06/05/24 05:44 Albumin 3.3 g/dL (3.2-4.8) Calcium Level 8.5 mg/dL (8.7-10.4) L Total Protein 5.3 g/dL (5.7-8.2) L LFT Test 06/05/24 05:44 Alanine Aminotransferase (ALT) 11 U/L (7-40) Alkaline Phosphatase 44 U/L (46-116) L Aspartate Amino Transferase (AST) < 8 U/L (13-40) L Total Bilirubin 0.4 mg/dL (0.2-1.0) Urinalysis Test 06/02/24 13:32 Urine Color Colorless (Yellow) Urine Clarity Turbid (Clear) H Urine pH 5.5 (5.0-9.0) Urine Specific [place] 1.009 (1.001-1.035) Urine Protein Negative (Negative) Urine Ketones Negative (Negative) Urine Blood 3+ /uL (Negative) H Urine Nitrite Negative (Negative) Urine Bilirubin Negative (Negative) Urine Urobilinogen Normal mg/dL (Negative) Urine Leukocyte Esterase Negative /uL (Negative) Urine RBC 5 /hpf (0 - 4) Urine Microscopic WBC 6 /HPF (0-5) H Urine Squamous Epithelial Cells Few /hpf (<5) Urine Bacteria Few /hpf (None Seen) H Urine Glucose Normal mg/dL (Normal) Labs and/or images reviewed: Labs reviewed by me, Image(s) reviewed by me Assessment/Plan Assessment/Plan Dizziness Concussion injury: MRI brain negative for any acute pathology: History of injury at work in [employer] 05-26-24, on worker's comp case Tele psych consult by Dr. Acosta Cosby: "Headache, blurred vision, word- finding difficulty, and left-sided paresthesias - suspect post-concussive syndrome, imaging negative for stroke" [place] for the pain and observation Tingling and numbness in bilateral hands and feet, new onset, repeat tele neurology consult by Dr. Enrique Zaidi who felt the symptoms do not correspond to any neurological syndrome Possible anxiety: History of anxiety in the past: Xanax 1 mg PO TID Neck pain: CT C-spine negative MEME Williamson at bedside Plan discussed with: Patient, Other (MEME Williamson) Date of Service: Jun 05, 2024 Billing Provider: CHERRIE SANCHEZ MD Common Visit Codes: [id number] INP/OBS CARE(HIGH) CHERRIE SANCHEZ MD Jun 05, 2024 12:52
[2024-06-05 13:00] VITALS: BP 121/74; PULSE 85; RESP 16; TEMP 98; O2SAT 98
--- NOTE | 2024-06-05 13:03 | DVHDS2 ---
Discharge Summary Date of Admission Jun 02, 2024 at 18:08 Date of Discharge: Jun 05, 2024 Admitting Diagnosis Dizziness Wounds: None Labs/Diagnostic Data: Laboratory Results Test 06/05/24 05:44 06/02/24 13:32 White Blood Count 5.7 10^3/uL (4.4-10.8) Red Blood Count 4.01 10^6/uL (4.0-5.20) Hemoglobin 11.5 g/dL (12.2-16.2) Hematocrit 34.4 % (36.0-46.0) Mean Corpuscular Volume 85.6 fL (80.0-100.0) Mean Corpuscular Hemoglobin 28.7 pg (28.0-32.0) Mean Corpuscular Hemoglobin Concent 33.5 g/dL (32.0-36.0) Red Cell Distribution Width 13.5 % (11.8-14.3) Platelet Count 180 10^3/uL (140-450) Mean Platelet Volume 8.8 fL (6.9-10.8) Neutrophils (%) (Auto) 53.2 % (37.0-80.0) Lymphocytes (%) (Auto) 36.7 % (10.0-50.0) Monocytes (%) (Auto) 7.5 % (0.0-12.0) Eosinophils (%) (Auto) 2.4 % (0.0-7.0) Basophils (%) (Auto) 0.2 % (0.0-2.0) Neutrophils # (Auto) 3.0 10 ^3/uL (1.6-8.6) Lymphocytes # (Auto) 2.1 10 ^3/uL (0.4-5.4) Monocytes # (Auto) 0.4 10 ^3/uL (0-1.3) Eosinophils # (Auto) 0.1 10 ^3/uL (0-0.8) Basophils # (Auto) 0 10 ^3/uL (0-0.2) Nucleated Red Blood Cells 0.1 % Sodium Level 140 mmol/L (136-145) Potassium Level 4.0 mmol/L (3.5-5.1) Chloride Level 108 mmol/L (98-107) Carbon Dioxide Level 24 mmol/L (20-31) Anion Gap 8 (5-15) Blood Urea Nitrogen 6 mg/dL (9-23) Creatinine 0.60 mg/dL (0.550-1.02) Glomerular Filtration Rate Calc 111 mL/min (>90) BUN/Creatinine Ratio 10.0 (10.0-20.0) Serum Glucose 89 mg/dL (74-106) Calcium Level 8.5 mg/dL (8.7-10.4) Total Bilirubin 0.4 mg/dL (0.2-1.0) Aspartate Amino Transferase (AST) < 8 U/L (13-40) Alanine Aminotransferase (ALT) 11 U/L (7-40) Alkaline Phosphatase 44 U/L (46-116) Total Protein 5.3 g/dL (5.7-8.2) Albumin 3.3 g/dL (3.2-4.8) Urine Color Colorless (Yellow) Urine Clarity Turbid (Clear) Urine pH 5.5 (5.0-9.0) Urine Specific [place] 1.009 (1.001-1.035) Urine Protein Negative (Negative) Urine Ketones Negative (Negative) Urine Blood 3+ /uL (Negative) Urine Nitrite Negative (Negative) Urine Bilirubin Negative (Negative) Urine Urobilinogen Normal mg/dL (Negative) Urine Leukocyte Esterase Negative /uL (Negative) Urine RBC 5 /hpf (0 - 4) Urine Microscopic WBC 6 /HPF (0-5) Urine Squamous Epithelial Cells Few /hpf (<5) Urine Bacteria Few /hpf (None Seen) Urine Glucose Normal mg/dL (Normal) Other Laboratory Tests 06/05/24 05:44 Brief Hx & Hospital Course: Old female had a worker's comp injury at home on 05/26/2024 being seen by worker's comp came to our ER for dizziness headache blurry vision and finding difficulty with the wounds. MRI brain negative for any acute pathology. Patient was treated with a [place] for the pain and Xanax for anxiety. Tele psych consult by Dr. Acosta Cosby suspected post concussive syndrome. Patient complained of sudden onset of tingling and numbness bilateral feet and bilateral hands repeat tele neurology consult by Dr. Enrique Zaidi who felt the patient's symptoms do not match any known neurological syndrome. C-spine CT was negative. Patient at the time of discharge is asymptomatic ambulatory with a minimal headache and no dizziness. Being discharged home on [place] for the pain and mild dose of Xanax for anxiety. She was advised to follow up with her worker's comp Consults/Reason for consult Tele neurology consult x2 Operations or Procedures MRI brain C-spine CT Condition at Discharge: Fair Final Diagnosis/Problems List Dizziness Concussion injury: MRI brain negative for any acute pathology: History of injury at work in [employer] 05-26-24, on [employer] case Tele psych consult by Dr. Acosta Cosby: "Headache, blurred vision, word-finding difficulty, and left-sided paresthesias - suspect post-concussive syndrome, imaging negative for stroke" [place] for the pain and observation Tingling and numbness in bilateral hands and feet, new onset, repeat tele neurology consult by Dr. Enrique Zaidi who felt the symptoms do not correspond to any neurological syndrome Possible anxiety: History of anxiety in the past: Xanax 1 mg PO TID Neck pain: CT C-spine negative Discharge Disposition: Home Discharge Instruct/Medications Diet: Regular Activity: Light activity Follow Up/Referral: Follow up with your worker's comp Medications: Xanax [place] Transmitted to [facility] pharmacy 39 (Time taken for discharge summary 39 minutes) Discharge Statement: "Patient was advised to return to the ER or call 911 if any headaches, dizziness, shortness of breath, chest pain, abdominal pain, bleeding, fevers, or worsening of medical condition. Patient was counseled about treatment plan, medications, possible side effects, patientverbalized understanding. All questions were answered to the best of my ability. This discharge took greater then 30 minutes in planning, reviewing documentation, counseling the patient, and discussing with other team members." ASSESSMENT ASSESSMENT Hospital Course Improved Assessment Dizziness Concussion injury: MRI brain negative for any acute pathology: History of injury at work in home [facility] 05-26-24, on [employer]/20 case Tele psych consult by Dr. Acosta Cosby: "Headache, blurred vision, word- finding difficulty, and left-sided paresthesias - suspect post-concussive syndrome, imaging negative for stroke" [place] for the pain and observation Tingling and numbness in bilateral hands and feet, new onset, repeat tele neurology consult by Dr. Enrique Zaidi who felt the symptoms do not correspond to any neurological syndrome Possible anxiety: History of anxiety in the past: Xanax 1 mg PO TID Neck pain: CT C-spine negative Date of Service: Jun 05, 2024 Billing Provider: CHERRIE SANCHEZ MD Common Visit Codes: [id number] INP/OBS CARE(HIGH) CHERRIE SANCHEZ MD Jun 05, 2024 13:03
== END 2024-06-05 15:20 | disposition home or self-care (01) | DRG 74 ==
LOC: ER 11:17 → OVERFLOW 18:08 → WEST WING 06-03 17:06
PROVIDERS: ADMIT Family Medicine; ATTEND Family Medicine
DX: G90.89 Other disorders of autonomic nervous system (principal); F07.81 Postconcussional syndrome; F41.9 Anxiety disorder, unspecified; Z87.442 Personal history of urinary calculi; Z82.49 Family history of ischemic heart disease and other diseases of the circulatory system; Z80.49 Family history of malignant neoplasm of other genital organs; Z79.899 Other long term (current) drug therapy
CPT/HCPCS: 36415; 70551; 72125; 80048; 80053; 81001; 82962; 85025; G0378

== ENCOUNTER 2024-06-12 04:03 | Emergency (ER) | payer MEDICAID, OTHER ==
[~2024-06-12] VITALS: Ht 165.1 cm; Wt 74.1 kg
[~2024-06-12 04:03] MED LIST changes: +ALPR1TAB2 PO; +CYCL-614 PO; +HYDR-4902 PO; +IBUP-1456 PO
[2024-06-12 04:15] VITALS: BP 129/90; PULSE 98; RESP 12; TEMP 98.8; O2SAT 100
--- NOTE | 2024-06-12 04:27 | ED.PDOC ---
Back pain HPI HPI Comments PATIENT C/O BILATERAL SHOULDER/UPPER BACK PAIN/ BURNING SENSATION. STATES HER ARMS FEEL NUMB. 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 STATES SHE BELIEVES SHE LOST CONSCIOUSNESS. IS SEEING PHYSICAL THERAPIST AND WORKERS COMP DOCTOR. PATIENT LAST TOOK FLEXORIL AT 2200, MOTRIN AT 2200. HAS NOT TAKEN HER PRESCRIBED XANAX OR NORCO. PATIENT STATES SHE CANNOT LIFT HER ARMS PAST HER ABDOMEN. 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 LAST SEEN HERE 06/04. MRI BRAIN AND CT SCAN OF CERVICAL SPINE WERE COMPLETED, SHOWS NO ACUTE FRACTURES, OSSEOUS LESIONS OR SUBLUXATIONS. THERE WAS NO BLEED OR CHRONIC CONCERNS. ALSO HAD BLOOD WORK DONE, THIS IS A BUT NEVER HAD A MRI OF HER NECK WHICH IS HER MAJOR CONCERN. DENIES ANY NEW INJURY. Chief Complaint: Back Pain Time Seen by MD: 04:06 Primary Care Provider: WORK COMP Reviewed Notes: Nurses Notes, Medications, Allergies Allergies: Coded Allergies: NO KNOWN ALLERGIES (Unverified , 05/31/24) Home Meds Active Scripts Hydrocodone-Acetaminophen (Hydrocodone Bitartrate/AC 5-325 mg) 1 Tab Tab, 1 TAB PO TID PRN, #20 TAB Prov:CHERRIE SANCHEZ MD 06/05/24 Alprazolam (Xanax) 1 Mg Tab, 0.5 TAB PO BID PRN, #20 TAB Prov:CHERRIE SANCHEZ MD 06/05/24 Acetaminophen W/ Codeine (Tylenol W/Cod #3) 1 Tab Tb, 1 TAB PO Q6HPRN, #10 TAB 0 Refills Prov:CECIL RIVAS 05/31/24 Reported Medications Cyclobenzaprine HCl (Cyclobenzaprine Hydrochlo) 5 Mg Tab, 5 MG PO, TAB 06/03/24 Ibuprofen (Ibuprofen) 800 Mg Tab, 800 MG PO for pain, MG 06/03/24 Information Source: Patient Past Medical History PAST MEDICAL HISTORY: Kidney Stones Surgical History: Tubal Ligation UNIT REACTOR OPERATOR History: No Pertinent UNIT REACTOR OPERATOR History Family History Family History: Reviewed,noncontributory to illness, Unknown Social History Smoker: Non-Smoker Alcohol: Denies ETOH Use Drugs: Denies Drug Use Lives In: Home Constitutional: denies: chills, diaphoresis, fatigue, fever, malaise, sweats, weakness, others EENTM: denies: blurred vision, double vision, ear bleeding, ear discharge, ear drainage, ear pain, ear ringing, eye pain, eye redness, hearing loss, mouth pain, mouth swelling, nasal discharge, nose bleeding, nose congestion, nose pain, photophobia, tearing, throat pain, throat swelling, voice changes, others Respiratory: denies: cough, hemoptysis, orthopnea, SOB at rest, shortness of breath, SOB with excertion, stridor, wheezing, others Cardiovascular: denies: chest pain, dizzy spells, diaphoresis, Dyspnea on exertion, edema, irregular heart beat, left arm pain, lightheadedness, palpitations, PND, syncope, others Gastrointestinal: denies: abdomen distended, abdominal pain, blood streaked bowels, constipated, diarrhea, dysphagia, difficulty swallowing, hematemesis, melena, nausea, poor appetite, poor fluid intake, rectal bleeding, rectal pain, vomiting, others Genitourinary: denies: abnormal vagina bleeding, burning, dyspareunia, dysuria, flank pain, frequency, hematuria, incontinence, pain, , vagina discharge, urgency, others Neurological: reports: tingling, weakness; denies: dizziness, fainting, headache, left sided numbness, left sided weakness, numbness, paresthesia, pre-existing deficit, right sided numbness, right sided weakness, seizure, speech problems, tremors, others Musculoskeletal: reports: neck pain; denies: back pain, gout, joint pain, joint swelling, muscle pain, muscle stiffness, others Integumetry: denies: bruises, change in color, change in hair/nails, dryness, laceration, lesions, lumps, rash, wounds, others Allergic/Immunocompromised: denies: Difficulty Healing, Frequent Infections, Hives, Itching, others Hematologic/Lymphatic: denies: anemia, blood clots, easy bleeding, easy bru ising, swollen glands, others Endocrine: denies: excessive hunger, excessive sweating, excessive thirst, e xcessive urination, flushing, intolerance to cold, intolerance to heat, unexplained weight gain, unexplained weight loss, others Psychiatric: denies: anxiety, bipolar disorder, depression, hopeless, panic disorder, schizophrenia, sleepless, suicidal, others Physical Exam General Appearance: No Apparent Distress, Normal HEENT: Pharynx Normal Neck: Limited Range of Motion, Non-Tender, Tender Lateral (BILATERAL TENDERNESS ON PALPATION OVER BILATERAL TRAPS. CERVICAL SPINE NO NOTED TENDERNESS STEP-OFFS OR CREPITUS. PATIENT HAS SENSATION INTACT BILATERAL UPPER EXTREMITIES. STATES UNABLE TO LIFT HER BILATERAL ARMS FULLY) Respiratory: Chest Non-Tender, Lungs Clear, No Accessory Muscle Use, No Respiratory Distress, Normal Breath Sounds Cardiovascular: No Edema, No JVD, No Murmur, No Gallop, Normal Peripheral Pulses, Regular Rate/Rhythm Breast Exam: Deferred Gastrointestinal: No Organomegaly, Non Tender, No Pulsatile Mass, Normal Bowel Sounds, Soft Genitalia: Deferred Pelvic: Deferred Rectal: Deferred Extremities: Normal capillary refill, Normal inspection, Normal range of motion, Non-tender, No pedal edema Musculoskeletal : Apperance: Normal Neurologic: Alert, inverter and clipper II-XII nml as Tested, No Motor Deficits, Normal Affect, Normal Mood, No Sensory Deficits Cerebellar Function: Normal Reflexes: Normal Skin: Dry, Normal Color, Warm Lymphatic: No Adenopathy Was a procedure done? Was a procedure done?: No Back Pain Differential Dx Differential Diagnosis: Fracture, Musculoskeletal Pain, Strain X-Ray, Labs, Meds, VS Vital Signs Date Time Temp Pulse Resp B/P (MAP) Pulse Ox O2 Delivery O2 Flow Rate FiO2 06/12/24 04:15 98.8 98 12 129/90 (103) 100 98.8 06/12/24 04:15 Room Air 06/12/24 04:15 98.8 98 12 129/90 (103) 100 98.8 X-Ray, Labs, Meds, VS Comment PATIENT GIVEN DECADRON 10 MG IM REPORTS IMPROVEMENT IN SYMPTOMS REQUESTING DISCHARGE AT THIS TIME, PATIENT WAS RUNNING UP HER ARMS WITHOUT DIFFICULTY SHE PAIN HAS NOT IMPROVED STRENGTH HAS NOT IMPROVED SHE WOULD LIKE TO GO HOME AND TAKE THE REST OF HER MEDICATIONS. ADVISED HER TO FALL HER PRIMARY IN THE MORNING AND SCHEDULE AN OUTPATIENT MRI OF HER CERVICAL SPINE. ADVISED HER ON ER RETURN PRECAUTIONS PATIENT INDICATED UNDERSTANDING AGREES WITH DISCHARGE PLAN OF CARE Time of 1ST Reevaluation: 04:26 Reevaluation 1ST: Unchanged Time of 2ND Reevaluation: 05:32 Reevaluation 2ND: Improved Patient Education/Counseling: Diagnosis, Treatment, Prognosis, Need For Follow Up Family Education/Counseling: No Family Present Departure 1 Departure Time of Disposition: 05:20 Impression: Primary Impression: Cervical radiculopathy Additional Impression: Upper extremity weakness Disposition: 01 HOME / SELF CARE / HOMELESS Condition: Stable Additional Instructions: RECOMMEND CERVICAL SPINE MRI PATIENT FOLLOW UP WITH HER PCP OR OCCUPATIONAL HEALTH TO OBTAIN AN ORDER Discharged With: Self Critical Care Note Critical Care Time?: No Stability Stability form required: CAIT Freire Jun 12, 2024 04:27
[2024-06-12] MEDS ORDERED: METHOCARBAMOL 500 MG TAB PO ONE (04:30)
[2024-06-12] MEDS ORDERED: KETOROLAC TROMETH 60MG/2ML VIAL IM ONE (04:30)
[2024-06-12] MEDS ORDERED: diazePAM 5 MG TAB PO ONE (05:00)
[2024-06-12] MEDS ORDERED: GABAPENTIN 100 MG CAP PO ONE (05:00)
[2024-06-12] MEDS: DexAMETHasone SOD PHOS 10MG/1ML VIAL INJ IM ONE (05:34)
== END 2024-06-12 05:56 | disposition home or self-care (01) ==
LOC: ER 04:03
DX: M54.12 Radiculopathy, cervical region (principal); R53.1 Weakness; M25.512 Pain in left shoulder; M25.511 Pain in right shoulder; Z79.899 Other long term (current) drug therapy; Z98.51 Tubal ligation status
CPT/HCPCS: 96372; 99283; J1100; J1885

== ENCOUNTER 2024-06-12 10:21 | Emergency (ER) | payer MEDICAID ==
[~2024-06-12] VITALS: Ht 165.1 cm; Wt 74.2 kg
--- NOTE | 2024-06-12 10:45 | ED.PDOC ---
History of Present Illness HPI Comments 48 y/o F presents with c/o bilateral upper extremity weakness, today. Patient endorses on additional onset of symptoms, this morning, following several ED encounters for headaches following a work-related head injury incident that took place on 05/26/24. She reports on receiving a head CT on 05/28/24, brain MRI on 06/03/24, and cervical spine on 06/04/24, with all imaging reports showing benign findings. She denies having any numbness, tingling, fever, chills, or other associated symptoms at this time. Chief Complaint: General Weakness Time Seen by MD: 10:30 Primary Care Provider: WORK [employer] Reviewed Notes: Nurses Notes, Medications, Allergies Allergies: Coded Allergies: NO KNOWN ALLERGIES (Unverified , 05/31/24) Home Meds Active Scripts Hydrocodone-Acetaminophen (Hydrocodone Bitartrate/AC 5-325 mg) 1 Tab Tab, 1 TAB PO TID PRN, #20 TAB Prov:CHERRIE SANCHEZ MD 06/05/24 Alprazolam (Xanax) 1 Mg Tab, 0.5 TAB PO BID PRN, #20 TAB Prov:CHERRIE SANCHEZ MD 06/05/24 Acetaminophen W/ Codeine (Tylenol W/Cod #3) 1 Tab Tb, 1 TAB PO Q6HPRN, #10 TAB 0 Refills Prov:CECIL RIVAS 05/31/24 Reported Medications Cyclobenzaprine HCl (Cyclobenzaprine Hydrochlo) 5 Mg Tab, 5 MG PO, TAB 06/03/24 Ibuprofen (Ibuprofen) 800 Mg Tab, 800 MG PO for pain, MG 06/03/24 Information Source: Patient Mode of Arrival: Ambulatory Severity: Moderate Timing: Hours Duration: Since onset Prehospital treatment: None Past Medical History PAST MEDICAL HISTORY: Kidney Stones Surgical History: Appendectomy, Tubal Ligation 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 History Family History Family History: Reviewed,noncontributory to illness, Unknown Social History Smoker: Non-Smoker Alcohol: Denies ETOH Use Drugs: Denies Drug Use Lives In: Home Constitutional: denies: chills, diaphoresis, fatigue, fever, malaise, sweats, weakness, others EENTM: denies: blurred vision, double vision, ear bleeding, ear discharge, ear drainage, ear pain, ear ringing, eye pain, eye redness, hearing loss, mouth pain, mouth swelling, nasal discharge, nose bleeding, nose congestion, nose pain, photophobia, tearing, throat pain, throat swelling, voice changes, others Respiratory: denies: cough, hemoptysis, orthopnea, SOB at rest, shortness of breath, SOB with excertion, stridor, wheezing, others Cardiovascular: denies: chest pain, dizzy spells, diaphoresis, Dyspnea on exertion, edema, irregular heart beat, left arm pain, lightheadedness, palpitations, PND, syncope, others Gastrointestinal: denies: abdomen distended, abdominal pain, blood streaked bowels, constipated, diarrhea, dysphagia, difficulty swallowing, hematemesis, me radha, nausea, poor appetite, poor fluid intake, rectal bleeding, rectal pain, vomiting, others Genitourinary: denies: abnormal vagina bleeding, burning, dyspareunia, dysuria, flank pain, frequency, hematuria, incontinence, pain, , vagina discharge, urgency, others Neurological: reports: weakness; denies: dizziness, fainting, headache, left sided numbness, left sided weakness, numbness, paresthesia, pre-existing deficit, right sided numbness, right sided weakness, seizure, speech problems, tingling, tremors, others Musculoskeletal: denies: back pain, gout, joint pain, joint swelling, muscle pain, muscle stiffness, neck pain, others Integumetry: denies: bruises, change in color, change in hair/nails, dryness, laceration, lesions, lumps, rash, wounds, others Allergic/Immunocompromised: denies: Difficulty Healing, Frequent Infections, Hives, Itching, others Hematologic/Lymphatic: denies: anemia, blood clots, easy bleeding, easy bruising, swollen glands, others Endocrine: denies: excessive hunger, excessive sweating, excessive thirst, excessive urination, flushing, intolerance to cold, intolerance to heat, unexplained weight gain, unexplained weight loss, others Psychiatric: denies: anxiety, bipolar disorder, depression, hopeless, panic disorder, schizophrenia, sleepless, suicidal, others All Other Systems: Reviewed and Negative Physical Exam General Appearance: No Apparent Distress HEENT: Normal ENT Inspection, Pharynx Normal, TMs Normal Neck: Full Range of Motion, Non-Tender, Normal, Normal Inspection Respiratory: Chest Non-Tender, Lungs Clear, No Accessory Muscle Use, No Respiratory Distress, Normal Breath Sounds Cardiovascular: No Edema, No JVD, No Murmur, No Gallop, Normal Peripheral Pulses, Regular Rate/Rhythm Breast Exam: Deferred Gastrointestinal: No Organomegaly, Non Tender, No Pulsatile Mass, Normal Bowel Sounds, Soft Genitalia: Deferred Pelvic: Deferred Rectal: Deferred Extremities: No calf tenderness, Normal capillary refill, Normal inspection, Normal range of motion, Non-tender, No pedal edema Musculoskeletal : Apperance: Normal Neurologic: Alert, peanut cleaner II-XII nml as Tested, Motor Weakness, Normal Affect, Normal Mood, No Sensory Deficits Cerebellar Function: Normal Reflexes: Normal Skin: Dry, Normal Color, Warm Lymphatic: No Adenopathy Was a procedure done? Was a procedure done?: No Differential Dx Considerations may include: viral syndrome, electrolyte imbalance, dehydration, idiopathic, among others X-Ray, Labs, Meds, VS Vital Signs Date Time Temp Pulse Resp B/P (MAP) Pulse Ox O2 Delivery O2 Flow Rate FiO2 06/12/24 10:36 98.5 113 18 136/96 (109) 95 98.5 Lab Test 06/12/24 10:33 Range/Units POC Glucose 142 H 70-106 mg/dl We reviewed the MRI as well as CAT scan of the cervical spine from previously and the patient states that she has is scheduled to have an MRI of her cervical spine We did tell the patient that she will have to follow up with the primary care doctor for the referral At this time the patient was being discharged We also reviewed the consultation with the neurologist on the last visit The patient was being discharged The patient understands and agrees with the management. Time of 1ST Reevaluation: 10:54 Reevaluation 1ST: Unchanged Patient Education/Counseling: Diagnosis, Treatment, Prognosis, Need For Follow Up Family Education/Counseling: No Family Present Departure 1 Departure Time of Disposition: 10:53 Impression: Primary Impression: Postconcussion syndrome Disposition: 01 HOME / SELF CARE / HOMELESS Condition: Fair Discharged With: Self Critical Care Note Critical Care Time?: No Stability Stability form required: No Heart Score Heart Score: Heart Score Response (Comments) Value History N/A 0 EKG N/A 0 Age N/A 0 Risk Factors N/A 0 Troponin N/A 0 Total 0 I personally scribed for HARJEET HERNANDEZ MD ([email or web address]) on 06/12/24 at 10:45. Electronically submitted by Brandon Boss ([email or web address]). HARJEET HERNANDEZ MD Jun 12, 2024 10:45
[2024-06-12 11:22] VITALS: BP 136/96; PULSE 100; RESP 18; TEMP 98.5; O2SAT 95
== END 2024-06-12 11:28 | disposition home or self-care (01) ==
LOC: ER 10:21
DX: F07.81 Postconcussional syndrome (principal); R51.9 Headache, unspecified; Z90.49 Acquired absence of other specified parts of digestive tract; Z98.51 Tubal ligation status; Z79.899 Other long term (current) drug therapy
CPT/HCPCS: 82947; 82962

== ENCOUNTER 2024-06-12 20:28 | Inpatient (IN) | payer MEDICAID, OTHER ==
[~2024-06-12] VITALS: Ht 165.1 cm; Wt 78.3 kg
--- NOTE | 2024-06-13 00:17 | ED.PDOC ---
History of Present Illness HPI Comments 48-year-old female presents with a chief complaint of facial pain and numbness, along with bilateral upper extremity numbness. Patient has recent history of worker's comp injury that she reports is contributing to today's visit. Patient check in this morning and left without being treated. She was told by her primary care doctor to come back to the ER. Chief Complaint: Face pain Time Seen by MD: 23:56 Primary Care Provider: WORK [employer] Reviewed Notes: Medications, Allergies Allergies: Coded Allergies: NO KNOWN ALLERGIES (Unverified , 05/31/24) Home Meds Active Scripts Hydrocodone-Acetaminophen (Hydrocodone Bitartrate/AC 5-325 mg) 1 Tab Tab, 1 TAB PO TID PRN, #20 TAB Prov:CHERRIE SANCHEZ MD 06/05/24 Alprazolam (Xanax) 1 Mg Tab, 0.5 TAB PO BID PRN, #20 TAB Prov:HCERRIE SANCHEZ MD 06/05/24 Acetaminophen W/ Codeine (Tylenol W/Cod #3) 1 Tab Tb, 1 TAB PO Q6HPRN, #10 TAB 0 Refills Prov:CECIL RIVAS 05/31/24 Reported Medications Cyclobenzaprine HCl (Cyclobenzaprine Hydrochlo) 5 Mg Tab, 5 MG PO, TAB 06/03/24 Ibuprofen (Ibuprofen) 800 Mg Tab, 800 MG PO for pain, MG 06/03/24 Information Source: Patient Mode of Arrival: Ambulatory Severity: Moderate Timing: Days Duration: Since onset Prehospital treatment: None Past Medical History PAST MEDICAL HISTORY: Kidney Stones Surgical History: Appendectomy, Tubal Ligation 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 History Family History Family History: Reviewed,noncontributory to illness, Unknown Social History Smoker: Non-Smoker Alcohol: Denies ETOH Use Drugs: Denies Drug Use Lives In: Home Constitutional: denies: chills, diaphoresis, fatigue, fever, malaise, sweats, weakness, others EENTM: denies: blurred vision, double vision, ear bleeding, ear discharge, ear drainage, ear pain, ear ringing, eye pain, eye redness, hearing loss, mouth pain, mouth swelling, nasal discharge, nose bleeding, nose congestion, nose pain, photophobia, tearing, throat pain, throat swelling, voice changes, others Respiratory: denies: cough, hemoptysis, orthopnea, SOB at rest, shortness of breath, SOB with excertion, stridor, wheezing, others Cardiovascular: denies: chest pain, dizzy spells, diaphoresis, Dyspnea on exertion, edema, irregular heart beat, left arm pain, lightheadedness, palpitations, PND, syncope, others Gastrointestinal: denies: abdomen distended, abdominal pain, blood streaked bowels, constipated, diarrhea, dysphagia, difficulty swallowing, hematemesis, melena, nausea, poor appetite, poor fluid intake, rectal bleeding, rectal pain, vomiting, others Genitourinary: denies: abnormal vagina bleeding, burning, dyspareunia, dysuria, flank pain, frequency, hematuria, incontinence, pain, , vagina discharge, urgency, others Neurological: reports: numbness; denies: dizziness, fainting, headache, left sided numbness, left sided weakness, paresthesia, pre-existing deficit, right sided numbness, right sided weakness, seizure, speech problems, tingling, tremors, weakness, others Musculoskeletal: reports: neck pain; denies: back pain, gout, joint pain, joint swelling, muscle pain, muscle stiffness, others Integumetry: denies: bruises, change in color, change in hair/nails, dryness, laceration, lesions, lumps, rash, wounds, others Allergic/Immunocompromised: denies: Difficulty Healing, Frequent Infections, Hives, Itching, others Hematologic/Lymphatic: denies: anemia, blood clots, easy bleeding, easy bruising, swollen glands, others Endocrine: denies: excessive hunger, excessive sweating, excessive thirst, excessive urination, flushing, intolerance to cold, intolerance to heat, unexplained weight gain, unexplained weight loss, others Psychiatric: denies: anxiety, bipolar disorder, depression, hopeless, panic disorder, schizophrenia, sleepless, suicidal, others All Other Systems: Reviewed and Negative Physical Exam General Appearance: No Apparent Distress, Normal HEENT: Normal ENT Inspection, Pharynx Normal, TMs Normal Neck: Full Range of Motion, Non-Tender, Normal, Normal Inspection Respiratory: Chest Non-Tender, Lungs Clear, No Accessory Muscle Use, No Respiratory Distress, Normal Breath Sounds Cardiovascular: No Edema, No JVD, No Murmur, No Gallop, Normal Peripheral Pulses, Regular Rate/Rhythm Breast Exam: Deferred Gastrointestinal: No Organomegaly, Non Tender, No Pulsatile Mass, Normal Bowel Sounds, Soft Genitalia: Deferred Pelvic: Deferred Rectal: Deferred Extremities: No calf tenderness, Normal capillary refill, Normal inspection, Normal range of motion, Non-tender, No pedal edema Musculoskeletal : Apperance: Normal Neurologic: Alert, teacher of the sight impaired II-XII nml as Tested, No Motor Deficits, Normal Affect, Normal Mood, No Sensory Deficits Cerebellar Function: Normal Reflexes: Normal Skin: Dry, Normal Color, Warm Lymphatic: No Adenopathy Was a procedure done? Was a procedure done?: No Differential Dx Considerations may include: Cellulitis, abscess, uncontrolled diabetes X-Ray, Labs, Meds, VS Vital Signs Date Time Temp Pulse Resp B/P (MAP) Pulse Ox O2 Delivery O2 Flow Rate FiO2 06/13/24 01:48 87 15 115/80 06/13/24 00:47 87 15 97 Room Air* 0 21 06/13/24 00:46 98.1 87 20 123/84 (97) 97 98.1 06/13/24 00:41 87 20 123/84 06/12/24 21:53 98.1 114 18 127/86 (100) 98 98.1 Lab Test 06/13/24 00:42 Range/Units White Blood Count 11.4 H 4.4-10.8 10^3/uL Red Blood Count 4.51 4.0-5.20 10^6/uL Hemoglobin 12.8 12.2-16.2 g/dL Hematocrit 38.2 36.0-46.0 % Mean Corpuscular Volume 84.7 80.0-100.0 fL Mean Corpuscular Hemoglobin 28.4 28.0-32.0 pg Mean Corpuscular Hemoglobin Concent 33.5 32.0-36.0 g/dL Red Cell Distribution Width 13.7 11.8-14.3 % Platelet Count 241 140-450 10^3/uL Mean Platelet Volume 8.5 6.9-10.8 fL Neutrophils (%) (Auto) 82.9 H 37.0-80.0 % Lymphocytes (%) (Auto) 12.2 10.0-50.0 % Monocytes (%) (Auto) 4.8 0.0-12.0 % Eosinophils (%) (Auto) 0.0 0.0-7.0 % Basophils (%) (Auto) 0.1 0.0-2.0 % Neutrophils # (Auto) 9.4 H 1.6-8.6 10 ^3/uL Lymphocytes # (Auto) 1.4 0.4-5.4 10 ^3/uL Monocytes # (Auto) 0.5 0-1.3 10 ^3/uL Eosinophils # (Auto) 0 0-0.8 10 ^3/uL Basophils # (Auto) 0 0-0.2 10 ^3/uL Nucleated Red Blood Cells 0.0 % Sodium Level 139 136-145 mmol/L Potassium Level 3.8 3.5-5.1 mmol/L Chloride Level 106 98-107 mmol/L Carbon Dioxide Level 22 20-31 mmol/L Anion Gap 11 5-15 Blood Urea Nitrogen 7 L 9-23 mg/dL Creatinine 0.62 0.550-1.02 mg/dL Glomerular Filtration Rate Calc 110 >90 mL/min BUN/Creatinine Ratio 11.3 10.0-20.0 Serum Glucose 98 74-106 mg/dL Calcium Level 9.6 8.7-10.4 mg/dL Current Medications Medications (Trade) Dose Ordered Sig/Sierra Route Start Time Stop Time Status Last Admin Sodium Chloride 1,000 ml @ 1,000 mls/hr Q1H ONCE IV 06/13/24 00:15 06/13/24 01:14 DC 06/13/24 00:40 Ondansetron HCl (Zofran) 4 mg ONCE ONCE IV 06/13/24 00:15 06/13/24 00:16 DC 06/13/24 00:40 Morphine Sulfate 4 mg ONCE ONCE IV 06/13/24 00:15 06/13/24 00:16 DC 06/13/24 00:41 Time of 1ST Reevaluation: 00:06 Reevaluation 1ST: Unchanged Patient Education/Counseling: Diagnosis, Treatment Family Education/Counseling: No Family Present Departure 1 Departure Time of Disposition: 02:36 (Patient with cellulitis and developing abscess to the left face. Patient is also with a uncontrolled diabetes empirically cover patient with antibiotics and admit patient for further workup.) Impression: Primary Impression: Cellulitis Qualified Codes: L03.211 - Cellulitis of face Additional Impressions: Uncontrolled diabetes mellitus Qualified Codes: E11.65 - Type 2 diabetes mellitus with hyperglycemia Abscess of left external cheek Disposition: 09 ADMITTED INPATIENT Admit to: Med Surg Condition: Serious Critical Care Note Critical Care Time?: No Stability Stability form required: No Heart Score Heart Score: Heart Score Response (Comments) Value History N/A 0 EKG N/A 0 Age N/A 0 Risk Factors N/A 0 Troponin N/A 0 Total 0 I personally scribed for BRIDGET ROWE MD ([email or web address]) on 06/13/24 at 00:17. Electronically submitted by Faustino Apodaca ([email or web address]). BRIDGET ROWE MD Jun 13, 2024 00:17
[2024-06-13] MEDS: SODIUM CHLORIDE 0.9% 1,000 ML IV ONE ×2 (00:30→00:40)
[2024-06-13] MEDS: ONDANSETRON HCL 4 MG/2 ML VIAL IV ONE (00:40)
[2024-06-13] MEDS: MORPHINE SULFATE 4 MG/ML SYR/VIAL IV ONE (00:41)
[2024-06-13 00:47] VITALS: PULSE 87; RESP 15; O2SAT 97
[2024-06-13 00:48] LABS: Basophils # (auto) 0 10 ^3/uL (0-0.2); Basophils % (auto) 0.1 % (0.0-2.0); Eosinophils # (auto) 0 10 ^3/uL (0-0.8); Hematocrit 38.2 % (36.0-46.0); Hemoglobin 12.8 g/dL (12.2-16.2); Lymphocytes # (auto) 1.4 10 ^3/uL (0.4-5.4); Lymphocytes % (auto) 12.2 % (10.0-50.0); Mean Corpuscular Hemoglobin 28.4 pg (28.0-32.0); Mean Corpuscular Hgb Conc. 33.5 g/dL (32.0-36.0); Mean Corpuscular Volume 84.7 fL (80.0-100.0); Monocytes # (auto) 0.5 10 ^3/uL (0-1.3); Monocytes % (auto) 4.8 % (0.0-12.0); Neutrophils # (auto) 9.4 10 ^3/uL (1.6-8.6); Neutrophils % (auto) 82.9 % (37.0-80.0); Platelet Count (auto) 241 10^3/uL (140-450); Red Blood Cells 4.51 10^6/uL (4.0-5.20); Red Cell Distribution Width 13.7 % (11.8-14.3); White Blood Cell 11.4 10^3/uL (4.4-10.8)
[2024-06-13 00:59] LABS: Chloride 106 mmol/L (98-107); Potassium 3.8 mmol/L (3.5-5.1); Sodium 139 mmol/L (136-145)
[2024-06-13 01:00] LABS: Anion Gap 11 (5-15); Calcium 9.6 mg/dL (8.7-10.4); Carbon Dioxide 22 mmol/L (20-31)
[2024-06-13 01:05] LABS: BUN/Creatinine Ratio 11.3 (10.0-20.0); Blood Urea Nitrogen 7 mg/dL (9-23); Glucose 98 mg/dL (74-106)
--- NOTE | 2024-06-13 03:09 | DVH ---
Exam: CT MAXILLOFACIAL WITH History: c/f left facial abscess cellulitis Comparison Study: MRI 06/03/2024, CT 05/28/2024 TECHNIQUE: Multidetector CT of the maxillofacial region was performed from lung bases to pubic symphy sis. 100 cc Omnipaque 300 was administered. Axial, coronal and sagittal multiplanar reformats were ob tained from the axial data set by the technologist. Radiation optimization: All CT scans at this facility use at least one of these dose optimization concepción hniques: automated exposure control mA and/or kV adjustment per patient size (includes targeted exam s where dose is matched to clinical indication) or iterative reconstruction. Radiation Dose Information: CT Dose: CTDI volume is 66.26 mGy. Dose-length product is 1299.52 mGy*cm FINDINGS: No evidence of focal abscess or cellulitis. No fat stranding. No focal fluid collection. Parapharyng eal soft tissues appear symmetric and satisfactory. Salivary glands appear unremarkable. Paranasal si nuses are well aerated. Osseous structures demonstrate no erosion. IMPRESSION: 1. No acute findings.
[2024-06-13 07:28] VITALS: PULSE 93; RESP 16; O2SAT 97
[2024-06-13] MEDS ORDERED: ACETAMINOPHEN 325 MG TAB PO PRN (07:30)
[2024-06-13] MEDS ORDERED: DOCUSATE SOD 100 MG CAP PO PRN ×2 (07:30→11:00)
[2024-06-13] MEDS ORDERED: ONDANSETRON HCL 4 MG/2 ML VIAL IV PRN ×2 (07:30→11:00)
[2024-06-13] MEDS ORDERED: HYDROcodone-ACET 5/325MG TAB PO PRN (07:30)
--- NOTE | 2024-06-13 07:43 | DVHHP2 ---
History of Present Illness Reason for Visit: face pain History of Present Illness Aliza Rasheed, is a 48-year-old female with no significant past medical history, who came in due to numbness/tingling of face and bilateral upper extremities. Patient had a fall at work on 05/26/2024. She states he symptoms have been worsening to the point that she is having difficulty lifting up her arms. She has since been following up as an outpatient with workman comp provider. Patient was waiting for approval for a MRI and other treatment. Her symptoms were worsening, so she was recommended to come to the hospital. Past Surgical History: Appendectomy, Tubal Ligation Smoke: No ALCOHOL: none Drugs: None Lives: with Family Domestic Violence: Neg Review of Systems Constitutional: No: Fever, Chills, Sweats, Weakness, Malaise, Other Eyes: No: Pain, Vision change, Conjunctivae inflammation, Eyelid inflammation, Other, Redness ENT: No: Ear pain, Ear discharge, Nose pain, Nose discharge, Nose congestion, Mouth pain, Mouth swelling, Throat pain, Throat swelling, Other Respiratory: No: Cough, Dry, Shortness of breath, SOB with excertion, Wheezing, Hemoptysis, Pleuritic Pain, Sputum, Wheezing, Other Cardiovascular: No: Chest Pain, Palpitations, Orthopnea, Paroxysmal Noc. Dyspnea, Edema, Lt Headedness, Other Gastrointestinal: No: Nausea, Vomiting, Abdominal Pain, Diarrhea, Constipation, Melena, Hematochezia, Other Genitourinary: No Dysuria, No Frequency, No Incontinence, No Hematuria, No Retention, No Other Musculoskeletal: No: other, neck pain, shoulder pain, arm pain, back pain, hand pain, leg pain, foot pain Skin: No: Rash, Lesions, Jaundice, Bruising, Other Neurological: Weakness (bilateral upper extremities), Numbness (face bilateral upper extremities); No: Incoordination, Change in speech, Confusion, Seizures, Other Allergies: Coded Allergies: NO KNOWN ALLERGIES (Unverified , 05/31/24) Exam Vital Signs Vital Signs Date Time Temp Pulse Resp B/P (MAP) Pulse Ox O2 Delivery O2 Flow Rate FiO2 06/13/24 07:28 98.1 93 16 134/84 (101) 97 98.1 06/13/24 00:47 Room Air* 0 21 General Appearance: Alert, Oriented X3, Cooperative, moderate distress HEENT: Atraumatic, PERRLA Respiratory: Clear to auscultation, Normal air movement Cardiovascular: Regular rate, Normal S1, Normal S2, No murmurs Abdominal: Normal bowel sounds, Soft, No tenderness, No hepatospenomegaly Extremities: No clubbing, No cyanosis, No edema, Normal pulses, No tenderness/swelling Skin: No rashes, No breakdown, No significant lesion Neuro: Normal speech, Other (weaknes in bilateral upper extremities) Psych/Mental Status: Mental status NL, Mood NL Labs/Xrays Labs Test 06/13/24 00:42 Range/Units White Blood Count 11.4 H 4.4-10.8 10^3/uL Red Blood Count 4.51 4.0-5.20 10^6/uL Hemoglobin 12.8 12.2-16.2 g/dL Hematocrit 38.2 36.0-46.0 % Mean Corpuscular Volume 84.7 80.0-100.0 fL Mean Corpuscular Hemoglobin 28.4 28.0-32.0 pg Mean Corpuscular Hemoglobin Concent 33.5 32.0-36.0 g/dL Red Cell Distribution Width 13.7 11.8-14.3 % Platelet Count 241 140-450 10^3/uL Mean Platelet Volume 8.5 6.9-10.8 fL Neutrophils (%) (Auto) 82.9 H 37.0-80.0 % Lymphocytes (%) (Auto) 12.2 10.0-50.0 % Monocytes (%) (Auto) 4.8 0.0-12.0 % Eosinophils (%) (Auto) 0.0 0.0-7.0 % Basophils (%) (Auto) 0.1 0.0-2.0 % Neutrophils # (Auto) 9.4 H 1.6-8.6 10 ^3/uL Lymphocytes # (Auto) 1.4 0.4-5.4 10 ^3/uL Monocytes # (Auto) 0.5 0-1.3 10 ^3/uL Eosinophils # (Auto) 0 0-0.8 10 ^3/uL Basophils # (Auto) 0 0-0.2 10 ^3/uL Nucleated Red Blood Cells 0.0 % Sodium Level 139 136-145 mmol/L Potassium Level 3.8 3.5-5.1 mmol/L Chloride Level 106 98-107 mmol/L Carbon Dioxide Level 22 20-31 mmol/L Anion Gap 11 5-15 Blood Urea Nitrogen 7 L 9-23 mg/dL Creatinine 0.62 0.550-1.02 mg/dL Glomerular Filtration Rate Calc 110 >90 mL/min BUN/Creatinine Ratio 11.3 10.0-20.0 Serum Glucose 98 74-106 mg/dL Calcium Level 9.6 8.7-10.4 mg/dL Exam: CT MAXILLOFACIAL WITH FINDINGS: No evidence of focal abscess or cellulitis. No fat stranding. No focal fluid collection. Parapharyngeal soft tissues appear symmetric and satisfactory. Salivary glands appear unremarkable. Paranasal sinuses are well aerated. Osseous structures demonstrate no erosion. IMPRESSION: 1. No acute findings. EXAM: MRI CERVICAL WO CONTRAST; DATE: 06/13/2024 08:31 AM FINDINGS: CRANIOCERVICAL JUNCTION: The atlanto-dens interval is within normal limits. There is no evidence for significant cerebellar tonsillar ectopia. BONES: Vertebral body heights are preserved. No acute compression deformities are present. No discrete marrow infiltrative lesion is seen. SPINAL CORD: The spinal cord is normal in caliber. Subtle cord signal changes noted C4-C5 and C5-C6 levels anteriorly at the level of cord impingement. No hydromyelia PARASPINAL SOFT TISSUES: Unremarkable. INTERVERTEBRAL DISCS: C2-C3: No disc herniation, central canal stenosis, or neuroforaminal stenosis. C3-C4: Mild central disc protrusion and mild bilateral posterior facet arthropathy without significant central canal or neural foramina stenosis. No nerve impingement. C4-C5: Moderate reduction in disc height with modic type 2 discogenic endplate changes and subcentimeter Schmorl's nodes of the endplates, mild central disc protrusion and mild bilateral posterior facet and uncovertebral hypertrophy with resultant mild central canal stenosis, indentation of the ventral spinal cord with mild bilateral neural foramina stenosis with abutment of the bilateral exiting nerves. C5-C6: Mild right paracentral disc protrusion abutting the adjacent ventral spinal cord and impingement of the right traversing ventral nerve roots. Mild bilateral posterior facet arthropathy. The neural foramina are patent. C6-C7: Mild central disc protrusion with mild central canal stenosis without ne rve impingement. The neural foramina are patent. Subcentimeter perineural cysts are seen in the bilateral neural foramina. C7-T1: No disc herniation, central canal stenosis, or neuroforaminal stenosis. IMPRESSION: Straightening of normal lordosis that could be positional, reflect muscle spasm or pain. Correlate clinically. No acute osseous abnormality. Multilevel degenerative disc disease with evidence of mild cord impingement C4- C5 and C5-C6 levels with a subtle adjacent cord signal change that may represent edema or myelomalacia. In addition, impingement noted C4-C5 and C5-C6 levels. C4-C5: Moderate reduction in disc height with modic type 2 discogenic endplate changes and subcentimeter Schmorl's nodes of the endplates, mild central disc protrusion and mild bilateral posterior facet and uncovertebral hypertrophy with resultant mild central canal stenosis, indentation of the ventral spinal cord with mild bilateral neural foramina stenosis with abutment of the bilateral exiting nerves. C5-C6: Mild right paracentral disc protrusion abutting the adjacent ventral spinal cord and impingement of the right traversing ventral nerve roots. Mild bilateral posterior facet arthropathy. The neural foramina are patent. C6-C7: Mild central disc protrusion with mild central canal stenosis without nerve impingement. The neural foramina are patent. Subcentimeter perineural cysts are seen in the bilateral neural foramina. C3-C4: Mild central disc protrusion and mild bilateral posterior facet arthropathy without significant central canal or neural foramina stenosis. No nerve impingement. Assessment/Plan Assessment/Plan Assessment: Cervical radiculopathy, Bilateral upper extremities numbness and tingling, Facial numbness, Plan: Admit to Tele, Neurology consult, Cervical spine MRI, Neurosurgeon consult, Pain management, IV steroids, IV hydration, Plan discussed with: Patient Date of Service: Jun 13, 2024 Billing Provider: KESHAV CABRALES Common Visit Codes: [id number] INP/OBS CARE (MOD) KESHAV CABRALES Jun 13, 2024 07:42
[2024-06-13 08:19] LABS: Urine Bacteria None Seen /hpf (None Seen)
[2024-06-13 08:40] LABS: Urine Blood Negative /uL (Negative); Urine Clarity Clear (Clear); Urine Color Light-Yellow (Yellow); Urine Protein, UAD Negative (Negative); Urine Specific Gravity 1.037 (1.001-1.035); Urine Squamous Epithelial Cell MOD /hpf (<5); Urine Urobilinogen Normal (Negative); Urine WBC 2 /HPF (0-5)
--- NOTE | 2024-06-13 09:19 | DVHINCON2 ---
Date of service: Jun 13, [address] Prieto Reason for Consultation Cervical radiculopathy History of Present Illness Ms. Rasheed is a 48 years old right-handed female with a history of kidney stone, she came to the [facility] on 06/13/2024 with a chief company of paresthesia in the face, and bilateral upper extremities. At this time, she was alert, fully oriented, she provided the following history When she woke up on 06/13/2024, she had intense burning pain in the neck, numbness in bilateral face, bilateral whole upper extremities, and weakness in both arms, nausea. LS beginning, she was only able to move the both arms a little bit, but later she was seen improvement in the weakness On 06/02/2024, she developed blurry vision, difficulty with speech/depression herself, though she was mentally fine, she was admitted to the [facility] for four days, and a neurologist said she had a anxiety. She was given pain medication and Xanax with improvement On 05/26/2024, she was a fall at work with head and neck injury, she remembers falling and being helped by other people, he does not know if she has a loss of consciousness, the patient was seen in the urgent care center where she had MR to the knee. On 05/28/2024, the patient was developed dizziness/lightheadedness, pressure in the back of the head, she was seen in the [facility] and she was said to have concussion She denies a history of anxiety, but she did have anxiety three years ago after he lost her Urinalysis, 06/13/2024: Unremarkable WBC/HB/PLT/sleep, 06/13/2024: 11.4/12.8/241/84.7 BMP, 06/13/2024: Unremarkable Liver function tests, 06/05/2024: Unremarkable CT, maxillofacial, 06/13/2024: No acute findings CT C-spine, 06/04/2024: No evidence of acute cervical spine fracture or traumatic malalignment MRI head, 06/03/2024: No acute abnormal MRI findings of the brain MRI C-spine, 06/13/2024: Straightening of normal lordosis that could be positional, reflect muscle spasm or pain. Correlate clinically. No acute osseous abnormality. Multilevel degenerative disc disease with evidence of mild cord impingement C4-C5 and C5-C6 levels with a subtle adjacent cord signal change that may represent edema or myelomalacia. In addition, impingement noted C4-C5 and C5-C6 levels. C4-C5: Moderate reduction in disc height with modic type 2 discogenic endplate changes and subcentimeter Schmorl's nodes of the endplates, mild central disc protrusion and mild bilateral posterior facet and uncovertebral hypertrophy with resultant mild central canal stenosis, indentation of the ventral spinal cord with mild bilateral neural foramina stenosis with abutment of the bilateral exiting nerves. C5-C6: Mild right paracentral disc protrusion abutting the adjacent ventral spinal cord and impingement of the right traversing ventral nerve roots. Mild bilateral posterior facet arthropathy. The neural foramina are patent. C6-C7: Mild central disc protrusion with mild central canal stenosis without nerve impingement. The neural foramina are patent. Subcentimeter perineural cysts are seen in the bilateral neural foramina. C3-C4: Mild central disc protrusion and mild bilateral posterior facet arthropathy without significant central canal or neural foramina stenosis. No nerve impingement. Past Medical History Kidney stone Past Surgical History Appendectomy, tubal ligation Family History: FH: kidney disease G8 MOTHER FH: myocardial infarction G8 FATHER FH: uterine cancer G8 SISTER Family History Hypertension, diabetes, cancer Social History She has no history of smoking, she was no history of drug or alcohol abuse Allergies: Coded Allergies: NO KNOWN ALLERGIES (Unverified , 05/31/24) Home Meds Active Scripts Hydrocodone-Acetaminophen (Hydrocodone Bitartrate/AC 5-325 mg) 1 Tab Tab, 1 TAB PO TID PRN, #20 TAB Prov:CHERRIE SANCHEZ MD 06/05/24 Alprazolam (Xanax) 1 Mg Tab, 0.5 TAB PO BID PRN, #20 TAB Prov:CHERRIE SANCHEZ MD 06/05/24 Acetaminophen W/ Codeine (Tylenol W/Cod #3) 1 Tab Tb, 1 TAB PO Q6HPRN, #10 TAB 0 Refills Prov:CECIL RIVAS 05/31/24 Reported Medications Cyclobenzaprine HCl (Cyclobenzaprine Hydrochlo) 5 Mg Tab, 5 MG PO, TAB 06/03/24 Ibuprofen (Ibuprofen) 800 Mg Tab, 800 MG PO for pain, MG 06/03/24 Current Medications Current Medications Medications (Trade) Dose Ordered Sig/[place] PRN Reason Start Time Stop Time Status Last Admin Acetaminophen/ Hydrocodone Bitart ([place] 5/325MG Tab) 1 tab Q4HP PRN PO MODERATE PAIN (4-6 PAIN SCALE) 06/13/24 07:30 Ondansetron HCl (Zofran) 4 mg Q4HP PRN IV NAUSEA / VOMITING 06/13/24 07:30 Docusate Sodium (Colace Capsule) 100 mg BIDPRN PRN PO FOR CONSTIPATION 06/13/24 07:30 Acetaminophen (Tylenol Tablet) 650 mg Q6HP PRN PO PAIN SCALE 1-3 OR TEMP>100.4 06/13/24 07:30 Review of Systems As above, the other systems are negative Vital Signs Vital Signs Date Time Temp Pulse Resp B/P (MAP) Pulse Ox O2 Delivery O2 Flow Rate FiO2 06/13/24 07:28 93 16 97 Room Air* 0 21 06/13/24 07:28 98.1 134/84 (101) 98.1 Physical Exam GENERAL EXAM: General: the patient is well developed and nourished. No acute distress. HEENT: Normocephalic, neck is supple, no carotid bruits. No mass. RESPIRATORY: Normal respiratory effort with symmetrical lung expansion. Lungs clear to auscultation. CARDIOVASCULAR: Regular rate and rhythm with no murmurs. S1, S2. ABDOMEN: Soft, nontender, normal bowel sound MUSCULOSKELETAL EXAM: No tenderness to palpation in the cervical spine NEUROLOGICAL: MENTAL STATUS: Awake and alert. Oriented to person, place, time and general circumstances. Able to give personal history. SPEECH, LANGUAGE, HIGHER CORTICAL FUNCTION: no aphasia or dysathria. CRANIAL NERVES: #2: Intact visual gee to confrontation. The optic discs were sharp. #3,4,6: Pupils are equal, round and reactive. EOMs full and conjugate. No nystagmus. #5: Facial sensation intact in all three divisions bilaterally. Mandibular strength intact. #7: Facial muscles symmetrical and strength intact. #8: Hearing grossly normal to voice. #9,10: Uvula and soft palate rise in the midline. Swallow and voice are normal. #11: Trapezius and sternomastoid strength intact bilaterally. #12: Tongue midline. No fasciculations or atrophy. SENSATION: Sensation to touch and pinprick is normal. MOTOR: Normal tone in the upper and lower extremity. Normal muscle bulk. No fasciculations. No abnormal movements or posturing. Muscle strength of the major groups in the upper extremities is 5/5. Muscle strength of the major groups in the lower extremities is 5/5. REFLEXES: Deep tendon reflexes are symmetrical. No pathological reflexes. CEREBELLAR/COORDINATION: Finger to nose is normal bilaterally. GAIT/STATION: She walks slowly, but otherwise unremarkable Labs/Diagnostic Data Labs Test 06/13/24 07:30 06/13/24 00:42 Range/Units Urine Color Light-yellow Yellow Urine Clarity Clear Clear Urine pH 6.0 5.0-9.0 Urine Specific [place] 1.037 H 1.001-1.035 Urine Protein Negative Negative Urine Ketones Trace Negative Urine Blood Negative Negative /uL Urine Nitrite Negative Negative Urine Bilirubin Negative Negative Urine Urobilinogen Normal Negative mg/dL Urine Leukocyte Esterase Negative Negative /uL Urine RBC 1 0 - 4 /hpf Urine Microscopic WBC 2 0-5 /HPF Urine Squamous Epithelial Cells Mod <5 /hpf Urine Bacteria None seen None Seen /hpf Urine Glucose Normal Normal mg/dL White Blood Count 11.4 H 4.4-10.8 10^3/uL Red Blood Count 4.51 4.0-5.20 10^6/uL Hemoglobin 12.8 12.2-16.2 g/dL Hematocrit 38.2 36.0-46.0 % Mean Corpuscular Volume 84.7 80.0-100.0 fL Mean Corpuscular Hemoglobin 28.4 28.0-32.0 pg Mean Corpuscular Hemoglobin Concent 33.5 32.0-36.0 g/dL Red Cell Distribution Width 13.7 11.8-14.3 % Platelet Count 241 140-450 10^3/uL Mean Platelet Volume 8.5 6.9-10.8 fL Neutrophils (%) (Auto) 82.9 H 37.0-80.0 % Lymphocytes (%) (Auto) 12.2 10.0-50.0 % Monocytes (%) (Auto) 4.8 0.0-12.0 % Eosinophils (%) (Auto) 0.0 0.0-7.0 % Basophils (%) (Auto) 0.1 0.0-2.0 % Neutrophils # (Auto) 9.4 H 1.6-8.6 10 ^3/uL Lymphocytes # (Auto) 1.4 0.4-5.4 10 ^3/uL Monocytes # (Auto) 0.5 0-1.3 10 ^3/uL Eosinophils # (Auto) 0 0-0.8 10 ^3/uL Basophils # (Auto) 0 0-0.2 10 ^3/uL Nucleated Red Blood Cells 0.0 % Sodium Level 139 136-145 mmol/L Potassium Level 3.8 3.5-5.1 mmol/L Chloride Level 106 98-107 mmol/L Carbon Dioxide Level 22 20-31 mmol/L Anion Gap 11 5-15 Blood Urea Nitrogen 7 L 9-23 mg/dL Creatinine 0.62 0.550-1.02 mg/dL Glomerular Filtration Rate Calc 110 >90 mL/min BUN/Creatinine Ratio 11.3 10.0-20.0 Serum Glucose 98 74-106 mg/dL Calcium Level 9.6 8.7-10.4 mg/dL Assessment Bilateral facial, upper extremity paresthesia, etiology not clear Abnormal cervical spine MRI, Plan/Recommendation Monitoring Supportive treatment Telemetry MR brain scan More recommendation per clinical This medical document was created using an electronic medical record system with [employer] computerized dictation system. Although this document has been carefully reviewed, there may still be some phonetic and typographical errors. These areas are purely typographical due to imperfections of the software programs, and do not reflect any compromise in the patient's medical care. Plan discussed with: Patient AGNES JOSEPH MD Jun 13, 2024 09:19
--- NOTE | 2024-06-13 09:54 | DVH ---
EXAM: MRI CERVICAL WO CONTRAST; DATE: 06/13/2024 08:31 AM HISTORY: S/P fall, numbness COMPARISON: CT CERVICAL WITHOUT CONTRAST on DOS: 06/04/24 TECHNIQUE: MRI was performed utilizing multiple appropriate imaging planes and pulse sequences. FINDINGS: CRANIOCERVICAL JUNCTION: The atlanto-dens interval is within normal limits. There is no evidence for significant cerebellar tonsillar ectopia. BONES: Vertebral body heights are preserved. No acute compression deformities are present. No discre te marrow infiltrative lesion is seen. SPINAL CORD: The spinal cord is normal in caliber. Subtle cord signal changes noted C4-C5 and C5-C6 l evels anteriorly at the level of cord impingement. No hydromyelia PARASPINAL SOFT TISSUES: Unremarkable. INTERVERTEBRAL DISCS: C2-C3: No disc herniation, central canal stenosis, or neuroforaminal stenosis. C3-C4: Mild central disc protrusion and mild bilateral posterior facet arthropathy without significan t central canal or neural foramina stenosis. No nerve impingement. C4-C5: Moderate reduction in disc height with modic type 2 discogenic endplate changes and subcentime ter Schmorl's nodes of the endplates, mild central disc protrusion and mild bilateral posterior facet and uncovertebral hypertrophy with resultant mild central canal stenosis, indentation of the ventral spinal cord with mild bilateral neural foramina stenosis with abutment of the bilateral exiting nerv es. C5-C6: Mild right paracentral disc protrusion abutting the adjacent ventral spinal cord and impingeme nt of the right traversing ventral nerve roots. Mild bilateral posterior facet arthropathy. The piter ral foramina are patent. C6-C7: Mild central disc protrusion with mild central canal stenosis without nerve impingement. The neural foramina are patent. Subcentimeter perineural cysts are seen in the bilateral neural foramina . C7-T1: No disc herniation, central canal stenosis, or neuroforaminal stenosis. IMPRESSION: Straightening of normal lordosis that could be positional, reflect muscle spasm or pain. Correlate cl inically. No acute osseous abnormality. Multilevel degenerative disc disease with evidence of mild cord impingement C4-C5 and C5-C6 levels wi th a subtle adjacent cord signal change that may represent edema or myelomalacia. In addition, imping ement noted C4-C5 and C5-C6 levels. C4-C5: Moderate reduction in disc height with modic type 2 discogenic endplate changes and subcentime ter Schmorl's nodes of the endplates, mild central disc protrusion and mild bilateral posterior facet and uncovertebral hypertrophy with resultant mild central canal stenosis, indentation of the ventral spinal cord with mild bilateral neural foramina stenosis with abutment of the bilateral exiting nerv es. C5-C6: Mild right paracentral disc protrusion abutting the adjacent ventral spinal cord and impingeme nt of the right traversing ventral nerve roots. Mild bilateral posterior facet arthropathy. The piter ral foramina are patent. C6-C7: Mild central disc protrusion with mild central canal stenosis without nerve impingement. The neural foramina are patent. Subcentimeter perineural cysts are seen in the bilateral neural foramina . C3-C4: Mild central disc protrusion and mild bilateral posterior facet arthropathy without significan t central canal or neural foramina stenosis. No nerve impingement.
[2024-06-13] MEDS: HYDROcodone-ACET 5/325MG TAB PO PRN (11:19)
[2024-06-13] MEDS ORDERED: LORazepam 2MG/ML-1ML VIAL IV PRN (11:30)
[2024-06-13] MEDS: DexAMETHasone SOD PHOS 10MG/1ML VIAL INJ IV ONE (11:49)
--- NOTE | 2024-06-13 13:04 | DVH ---
EXAMINATION: MRI BRAIN HEAD WO CONTRAST INDICATION: Facial paresthesia COMPARISON: MRI BRAIN HEAD WO CONTRAST on DOS: 06/03/24 TECHNIQUE: Multiplanar, multisequence magnetic resonance imaging of the brain was performed without t he use of intravenous contrast. FINDINGS: There is no restricted diffusion. The sherman and white matter signal is appropriate. There is no eviden ce of hemorrhage, mass, mass effect or midline shift. There is no hydrocephalus or extra-axial fluid collection. The visualized intracranial vasculature demonstrates appropriate flow-voids. The sagittal midline structures appear unremarkable. The craniocervical junction is within normal limits. The sonya varium demonstrates normal marrow signal. The paranasal sinuses and mastoid air cells are clear. IMPRESSION: 1. Unremarkable noncontrast MRI brain. HS:Y
[2024-06-13 21:25] VITALS: BP 117/73; PULSE 95; RESP 16; TEMP 98.3; O2SAT 97
[2024-06-13 22:01] VITALS: BP 117/73; PULSE 95; RESP 16; TEMP 98.3; O2SAT 97
[2024-06-13] MEDS: DexAMETHasone SOD PHOS 4 MG/1ML SDV INJ IV SCH (23:18)
[2024-06-13] MEDS: DexAMETHasone SOD PHOS 4 MG/1ML SDV INJ ONE (23:24)
[2024-06-14] VITALS (8 sets, daily range): BP systolic 109–132; BP diastolic 69–79; PULSE 57–103; RESP 14–18; TEMP 98.2–98.9; O2SAT 96–99
[2024-06-14] MEDS: HYDROcodone-ACET 5/325MG TAB PO PRN (03:53)
[2024-06-14 06:08] LABS: Basophils # (auto) 0 10 ^3/uL (0-0.2); Eosinophils # (auto) 0 10 ^3/uL (0-0.8); Hemoglobin 12.5 g/dL (12.2-16.2); Lymphocytes # (auto) 0.8 10 ^3/uL (0.4-5.4); Lymphocytes % (auto) 6.9 % (10.0-50.0); Mean Corpuscular Hemoglobin 28.2 pg (28.0-32.0); Mean Corpuscular Hgb Conc. 33.7 g/dL (32.0-36.0); Mean Corpuscular Volume 83.8 fL (80.0-100.0); Monocytes # (auto) 0.3 10 ^3/uL (0-1.3); Monocytes % (auto) 2.4 % (0.0-12.0); Neutrophils # (auto) 10.1 10 ^3/uL (1.6-8.6); Neutrophils % (auto) 90.7 % (37.0-80.0); Nucleated Red Blood Cells % 0.1 %; Platelet Count (auto) 238 10^3/uL (140-450); Red Blood Cells 4.41 10^6/uL (4.0-5.20); Red Cell Distribution Width 14.1 % (11.8-14.3); White Blood Cell 11.2 10^3/uL (4.4-10.8)
[2024-06-14] MEDS: DexAMETHasone SOD PHOS 4 MG/1ML SDV INJ IV SCH (06:17)
[2024-06-14 06:30] LABS: Alanine Aminotransferase 13 U/L (7-40); Alkaline Phosphatase 57 U/L (46-116); Anion Gap 9 (5-15); BUN/Creatinine Ratio 11.4 (10.0-20.0); Calcium 9.4 mg/dL (8.7-10.4); Carbon Dioxide 25 mmol/L (20-31); Chloride 107 mmol/L (98-107); Potassium 4.2 mmol/L (3.5-5.1); Sodium 141 mmol/L (136-145); Total Protein 6.4 g/dL (5.7-8.2)
[2024-06-14 06:31] LABS: Albumin 4.2 g/dL (3.2-4.8)
[2024-06-14 06:32] LABS: Bilirubin, Total 0.4 mg/dL (0.2-1.0)
[2024-06-14 06:34] LABS: Aspartate Aminotransferase < 8 U/L (13-40); Blood Urea Nitrogen 8 mg/dL (9-23); Glucose 136 mg/dL (74-106)
--- NOTE | 2024-06-14 09:11 | DVHINCON2 ---
Consultation - Spinal Surgery Date Seen: Jun 14, 2024 Referring Physician Referring Physician Attending Doctor: Madie Prieto [facility] Reason for Consultation Reason for Visit: face pain History of Present Illness History of Present Illness History of Present Illness Aliza Rasheed, is a 48-year-old female with no significant past medical history, who came in due to numbness/tingling of face and bilateral upper extremities. Patient had a fall at work on 05/26/2024. She states he symptoms have been worsening to the point that she is having difficulty lifting up her arms. [facility] has since [facility] Patient was waiting for approval for a MRI and other treatment. Her symptoms were worsening, so she was recommended to come to the hospital. Past Medical/Surgical History Past Medical/Surgical History Past Surgical History: Appendectomy, Tubal Ligation Family and Social History Family and Social History Smoke: No ALCOHOL: none Drugs: None Lives: with Family Domestic Violence: Neg Allergies and medications Allergies: Coded Allergies: NO KNOWN ALLERGIES (Unverified , 05/31/24) Home Meds Active Scripts Hydrocodone-Acetaminophen (Hydrocodone Bitartrate/AC 5-325 mg) 1 Tab Tab, 1 TAB PO TID PRN, #20 TAB Prov:CHERRIE SANCHEZ MD 06/05/24 Alprazolam (Xanax) 1 Mg Tab, 0.5 TAB PO BID PRN, #20 TAB Prov:CHERRIE SANCHEZ MD 06/05/24 Acetaminophen W/ Codeine (Tylenol W/Cod #3) 1 Tab Tb, 1 TAB PO Q6HPRN, #10 TAB 0 Refills Prov:CECIL RIVAS 05/31/24 Reported Medications Cyclobenzaprine HCl (Cyclobenzaprine Hydrochlo) 5 Mg Tab, 5 MG PO, TAB 06/03/24 Ibuprofen (Ibuprofen) 800 Mg Tab, 800 MG PO for pain, MG 06/03/24 Review of systems Review of Systems: HEENT:Normal, CVS:Normal, RESPIRATORY:Normal, GI:Normal, :Normal, MSK:Normal (Patient able to move all extremities independently), NEURO:Normal (Patient describing muscle spasms that are starting in her low back and shooting up to her neck) Examination Vital signs Imaging: EXAM: MRI CERVICAL WO CONTRAST; DATE: 06/13/2024 08:31 AM HISTORY: S/P fall, numbness COMPARISON: CT CERVICAL WITHOUT CONTRAST on DOS: 06/04/24 TECHNIQUE: MRI was performed utilizing multiple appropriate imaging planes and pulse sequences. FINDINGS: CRANIOCERVICAL JUNCTION: The atlanto-dens interval is within normal limits. There is no evidence for significant cerebellar tonsillar ectopia. BONES: Vertebral body heights are preserved. No acute compression deformities are present. No discrete marrow infiltrative lesion is seen. SPINAL CORD: The spinal cord is normal in caliber. Subtle cord signal changes noted C4-C5 and C5-C6 levels anteriorly at the level of cord impingement. No hydromyelia PARASPINAL SOFT TISSUES: Unremarkable. INTERVERTEBRAL DISCS: C2-C3: No disc herniation, central canal stenosis, or neuroforaminal stenosis. C3-C4: Mild central disc protrusion and mild bilateral posterior facet arthropathy without significant central canal or neural foramina stenosis. No nerve impingement. C4-C5: Moderate reduction in disc height with modic type 2 discogenic endplate changes and subcentimeter Schmorl's nodes of the endplates, mild central disc protrusion and mild bilateral posterior facet and uncovertebral hypertrophy with resultant mild central canal stenosis, indentation of the ventral spinal cord with mild bilateral neural foramina stenosis with abutment of the bilateral exiting nerves. C5-C6: Mild right paracentral disc protrusion abutting the adjacent ventral spinal cord and impingement of the right traversing ventral nerve roots. Mild bilateral posterior facet arthropathy. The neural foramina are patent. C6-C7: Mild central disc protrusion with mild central canal stenosis without nerve impingement. The neural foramina are patent. Subcentimeter perineural cysts are seen in the bilateral neural foramina. C7-T1: No disc herniation, central canal stenosis, or neuroforaminal stenosis. IMPRESSION: Straightening of normal lordosis that could be positional, reflect muscle spasm or pain. Correlate clinically. No acute osseous abnormality. Multilevel degenerative disc disease with evidence of mild cord impingement C4- C5 and C5-C6 levels with a subtle adjacent cord signal change that may represent edema or myelomalacia. In addition, impingement noted C4-C5 and C5-C6 levels. C4-C5: Moderate reduction in disc height with modic type 2 discogenic endplate changes and subcentimeter Schmorl's nodes of the endplates, mild central disc protrusion and mild bilateral posterior facet and uncovertebral hypertrophy with resultant mild central canal stenosis, indentation of the ventral spinal cord with mild bilateral neural foramina stenosis with abutment of the bilateral exiting nerves. C5-C6: Mild right paracentral disc protrusion abutting the adjacent ventral spinal cord and impingement of the right traversing ventral nerve roots. Mild bilateral posterior facet arthropathy. The neural foramina are patent. C6-C7: Mild central disc protrusion with mild central canal stenosis without ner ve impingement. The neural foramina are patent. Subcentimeter perineural cysts are seen in the bilateral neural foramina. C3-C4: Mild central disc protrusion and mild bilateral posterior facet arthropathy without significant central canal or neural foramina stenosis. No nerve impingement. Vital Signs Date Time Temp Pulse Resp B/P (MAP) Pulse Ox O2 Delivery O2 Flow Rate FiO2 06/14/24 08:50 98.5 89 16 131/77 (95) 96 98.5 06/13/24 22:01 Room Air* 0 21 Medications Current Medications Medications (Trade) Dose Ordered Sig/[place] PRN Reason Start Time Stop Time Status Last Admin Acetaminophen/ Hydrocodone Bitart ([place] 5/325MG Tab) 1 tab Q4HP PRN PO MODERATE PAIN (4-6 PAIN SCALE) 06/13/24 11:00 06/14/24 03:42 DC 06/13/24 11:19 Acetaminophen (Tylenol Tablet) 650 mg Q6HP PRN PO PAIN SCALE 1-3 OR TEMP>100.4 06/13/24 11:00 Docusate Sodium (Colace Capsule) 100 mg BID PRN PO FOR CONSTIPATION 06/13/24 11:00 Ondansetron HCl (Zofran) 4 mg Q4HP PRN IV NAUSEA OR VOMITING 06/13/24 11:00 Dexamethasone Sodium Phosphate (Decadron Injection) 4 mg Q8HR IV 06/13/24 22:00 06/14/24 03:43 DC 06/13/24 23:18 Lorazepam (Ativan Inj) 1 mg ONCE PRN IV MRI 06/13/24 11:30 Acetaminophen/ Hydrocodone Bitart ([place] 5/325MG Tab) 1 tab Q4HP PRN PO MODERATE PAIN (4-6 PAIN SCALE) 06/14/24 03:45 06/14/24 03:53 Dexamethasone Sodium Phosphate (Decadron Injection) 4 mg Q8HR IV 06/14/24 06:00 06/14/24 06:17 Laboratory Labs Test 06/14/24 05:32 06/13/24 07:30 Range/Units White Blood Count 11.2 H 4.4-10.8 10^3/uL Red Blood Count 4.41 4.0-5.20 10^6/uL Hemoglobin 12.5 12.2-16.2 g/dL Hematocrit 37.0 36.0-46.0 % Mean Corpuscular Volume 83.8 80.0-100.0 fL Mean Corpuscular Hemoglobin 28.2 28.0-32.0 pg Mean Corpuscular Hemoglobin Concent 33.7 32.0-36.0 g/dL Red Cell Distribution Width 14.1 11.8-14.3 % Platelet Count 238 140-450 10^3/uL Mean Platelet Volume 9.1 6.9-10.8 fL Neutrophils (%) (Auto) 90.7 H 37.0-80.0 % Lymphocytes (%) (Auto) 6.9 L 10.0-50.0 % Monocytes (%) (Auto) 2.4 0.0-12.0 % Eosinophils (%) (Auto) 0.0 0.0-7.0 % Basophils (%) (Auto) 0.0 0.0-2.0 % Neutrophils # (Auto) 10.1 H 1.6-8.6 10 ^3/uL Lymphocytes # (Auto) 0.8 0.4-5.4 10 ^3/uL Monocytes # (Auto) 0.3 0-1.3 10 ^3/uL Eosinophils # (Auto) 0 0-0.8 10 ^3/uL Basophils # (Auto) 0 0-0.2 10 ^3/uL Nucleated Red Blood Cells 0.1 % Sodium Level 141 136-145 mmol/L Potassium Level 4.2 3.5-5.1 mmol/L Chloride Level 107 98-107 mmol/L Carbon Dioxide Level 25 20-31 mmol/L Anion Gap 9 5-15 Blood Urea Nitrogen 8 L 9-23 mg/dL Creatinine 0.70 0.550-1.02 mg/dL Glomerular Filtration Rate Calc 107 >90 mL/min BUN/Creatinine Ratio 11.4 10.0-20.0 Serum Glucose 136 H 74-106 mg/dL Calcium Level 9.4 8.7-10.4 mg/dL Total Bilirubin 0.4 0.2-1.0 mg/dL Aspartate Amino Transferase (AST) < 8 L 13-40 U/L Alanine Aminotransferase (ALT) 13 7-40 U/L Alkaline Phosphatase 57 46-116 U/L Total Protein 6.4 5.7-8.2 g/dL Albumin 4.2 3.2-4.8 g/dL Urine Color Light-yellow Yellow Urine Clarity Clear Clear Urine pH 6.0 5.0-9.0 Urine Specific [place] 1.037 H 1.001-1.035 Urine Protein Negative Negative Urine Ketones Trace Negative Urine Blood Negative Negative /uL Urine Nitrite Negative Negative Urine Bilirubin Negative Negative Urine Urobilinogen Normal Negative mg/dL Urine Leukocyte Esterase Negative Negative /uL Urine RBC 1 0 - 4 /hpf Urine Microscopic WBC 2 0-5 /HPF Urine Squamous Epithelial Cells Mod <5 /hpf Urine Bacteria None seen None Seen /hpf Urine Glucose Normal Normal mg/dL Examination: GENERAL:Normal, HEENT:Abnormal (Neck Pain, shoulder pain, bilateral hand weakness, limited range of motion bilateral arms), NECK:Abnormal (Neck pain), LUNGS:Normal, CVS:Normal, ABDOMEN:Normal, MSK:Abnormal (Patient is moving all extremities independently, patient does state that she has pain to her entire spine at starts in her low back and shoots up her neck. No compl aints of numbness or tingling to bilateral legs, patient does demonstrate limited range of motion to her arms in lifting above her head, however patient states that she is extremely upset at this time due to all the events of several hospitalizations.), SKIN:Normal, NEURO:Abnormal ( numbness/tingling of face and bilateral upper extremities. Patient had a fall at work on 05/26/2024. 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 Coupled with the patient's weakness makes this a more urgent matter and needs to be addressed as soon as possible. Patient will need cardiac and medical clearance for proposed schedule surgery on Wednesday06/16/24 Surgical option was discussed with the patient she is open to proceed Further care and management per admitting team's discretion Start Flexeril 10 mg Q 8 hours for the severe muscle pain and spasms that she is having which are causing a change in her normal cervical spine lordosis. Solu Medrol 80 mg q.8 hours for three days ordered Hold any anticoagulants NPO at midnight on 06/15/24 Physical therapy evaluation and treatment recommendations Call with questions Katherine Wilson [facility] Orthopaedic Spine Surgery nurse practitioner For Dr Karthik Ribeiro Patient was examined, chart reviewed, labs evaluated, and diagnostic studies and findings analyzed. Case was discussed with Dr. Khanh Ribeiro who formulated the plan of care. This medical document was created using an electronic medical record system with [email or web address] dictation system. Although this document has been carefully reviewed, there might still be some phonetic and typographical errors. These ar eas are purely typographical due to imperfections of the software programs, and do not reflect any compromise in the patient's medical care. Plan discussed with Plan discussed with: Patient, Other (Dr. Martina Romo) SANDRA WILSON NP Jun 14, 2024 09:11
--- NOTE | 2024-06-14 13:32 | DVHPN2 ---
Subjective The patient is seen and examined at bedside. Complain of severe pain in the back. Reviewed: Care Plan, H&P, Labs, Medications, Previous Orders, Radiology Changes from previous H/P or p: No Changes Eyes: No Pain, No Vision change, No Conjunctivae inflammation, No Eyelid inflammation, No Other, No Redness ENT: No Ear pain, No Ear discharge, No Nose pain, No Nose discharge, No Nose congestion, No Mouth pain, No Mouth swelling, No Throat pain, No Throat swelling, No Other Cardiovascular: No Chest Pain, No Palpitations, No Orthopnea, No Paroxysmal Noc. Dyspnea, No Edema, No Lt Headedness, No Other Respiratory: No Cough, No Dry, No Shortness of breath, No SOB with excertion, No Wheezing, No Hemoptysis, No Pleuritic Pain, No Sputum, No Other Gastrointestinal: No Nausea, No Vomiting, No Abdominal Pain, No Diarrhea, No Constipation, No Melena, No Hematochezia, No Other Genitourinary: No Dysuria, No Frequency, No Incontinence, No Hematuria, No Retention, No Other Musculoskeletal: No other, No neck pain, No shoulder pain, No arm pain, No back pain, No hand pain, No leg pain, No foot pain Skin: No Rash, No Lesions, No Jaundice, No Bruising, No Other Objective Vitals Vital Signs Date Time Temp Pulse Resp B/P (MAP) Pulse Ox O2 Delivery O2 Flow Rate FiO2 06/14/24 08:50 98.5 89 16 131/77 (95) 96 98.5 06/13/24 22:01 Room Air* 0 21 Intake/Output Intake and Output 06/14/24 07:00 Intake Total 150 ml Balance 150 ml Intake Oral 150 ml # Voids 5 General Appearance: Alert, Oriented X3, Cooperative, moderate distress HEENT: Atraumatic, PERRLA, EOMI, Mucous membr. moist/pink Neck: Supple Lungs: Clear to auscultation, Normal air movement Cardiovascular: Regular rate, Normal S1, Normal S2, No murmurs, Gallops, Rubs Abdomen: Normal bowel sounds, Soft, No tenderness Musculoskeletal: Weak motor strength RUE, Weak motor strength LUE Neuro: Cranial nerves 3-12 NL Psych/Mental Status: Mental status NL Medications Current Medications Medications Dose Ordered Sig/[place] Start Time Stop Time Status Last Admin Dose Admin Acetaminophen 650 mg Q6HP PRN PO 06/13/24 11:00 Docusate Sodium 100 mg BID PRN PO 06/13/24 11:00 Ondansetron HCl 4 mg Q4HP PRN IV 06/13/24 11:00 Lorazepam 1 mg ONCE PRN IV 06/13/24 11:30 Acetaminophen/ Hydrocodone Bitart 1 tab Q4HP PRN PO 06/14/24 03:45 06/14/24 12:38 1 TAB Dexamethasone Sodium Phosphate 4 mg Q8HR IV 06/14/24 06:00 06/14/24 06:17 4 MG Laboratory Results Laboratory Tests 06/14/24 05:32 Chemistry Test 06/14/24 05:32 Albumin 4.2 g/dL (3.2-4.8) Calcium Level 9.4 mg/dL (8.7-10.4) Total Protein 6.4 g/dL (5.7-8.2) LFT Test 06/14/24 05:32 Alanine Aminotransferase (ALT) 13 U/L (7-40) Alkaline Phosphatase 57 U/L (46-116) Aspartate Amino Transferase (AST) < 8 U/L (13-40) L Total Bilirubin 0.4 mg/dL (0.2-1.0) Urinalysis Test 06/13/24 07:30 Urine Color Light-yellow (Yellow) Urine Clarity Clear (Clear) Urine pH 6.0 (5.0-9.0) Urine Specific [place] 1.037 (1.001-1.035) Urine Protein Negative (Negative) Urine Ketones Trace (Negative) Urine Blood Negative /uL (Negative) Urine Nitrite Negative (Negative) Urine Bilirubin Negative (Negative) Urine Urobilinogen Normal mg/dL (Negative) Urine Leukocyte Esterase Negative /uL (Negative) Urine RBC 1 /hpf (0 - 4) Urine Microscopic WBC 2 /HPF (0-5) Urine Squamous Epithelial Cells Mod /hpf (<5) Urine Bacteria None seen /hpf (None Seen) Urine Glucose Normal mg/dL (Normal) Labs and/or images reviewed: Labs reviewed by me Assessment/Plan Assessment/Plan Cervical radiculopathy, Degenerative joint disease with Multilevel degenerative disc disease with evidence of mild cord impingement C4-C5 and C5-C6 levels with a subtle adjacent cord signal change that may represent edema or myelomalacia per MRI Bilateral upper extremities numbness and tingling, Facial numbness probable due to nerve impingement. MRI of the brain showed no acute process. Continuing current management. Continuing with Flexeril and pain medication. Discuss with the spine surgeon team. Patient need medical clearance and cardiac clearance for surgery. 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 Regarding to medical clearance. I discussed with the patient regarding to her medical problem. According to the patient she did not have any medical problem. No hypertension, no hyperlipidemia, no diabetes. Patient denied any headache, blurred vision. No chest pain, heart palpitation. No abdominal pain, constipation, diarrhea. No lower extremity edema. Patient medically stable for surgery This medical document was created using an electronic medical record system with [employer] direct computerized dictation system. Although this document has been carefully reviewed, there may still be some phonetic and typographical errors. These areas are purely typographical due to imperfections of the software programs, and do not reflect any compromise in the patient's medical care. Plan discussed with: Patient Date of Service: Jun 14, 2024 Billing Provider: TRACEY MEJIA MD Common Visit Codes: [id number] INP/OBS CARE(HIGH) TRACEY MEJIA MD Jun 14, 2024 13:32
--- NOTE | 2024-06-14 16:01 | DVHINCON2 ---
Date Seen: Jun 14, 2024 Referring Physician MD Clarissa Reason for Consultation Cardiac risk stratification History of Present Illness This is a 48-year-old female patient who presents to the emergency room status post mechanical fall. The patient reports that she works at [id number]. 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 She started experiencing facial numbness and back pain and decided to come to the emergency room for further evaluation. Imaging has revealed multilevel degenerative disc disease with evidence of mild cord impingement. Cardiology has now been consulted at this time for cardiac risk stratification pending possible orthopedic intervention. Initial twelve lead electrocardiogram ordered at time of assessment and reveals normal sinus rhythm. Significant past medical history includes kidney stones. Patient denies any cardiac history. Past Medical History Past medical history reviewed. No other significant than mentioned above. Past Surgical History Tubal ligation Appendectomy Family History: Alcoholism Diabetes mellitus G8 FATHER FH: cholecystectomy G8 MOTHER FH: kidney disease G8 MOTHER FH: myocardial infarction G8 FATHER FH: uterine cancer G8 SISTER Gout BROTHER Hypotension G8 MOTHER Family History Family history reviewed. Social History Denies the use of tobacco, alcohol or illicit drugs. Allergies: Coded Allergies: NO KNOWN ALLERGIES (Unverified , 05/31/24) Home Meds Active Scripts Hydrocodone-Acetaminophen (Hydrocodone Bitartrate/AC 5-325 mg) 1 Tab Tab, 1 TAB PO TID PRN, #20 TAB Prov:CHERRIE SANCHEZ MD 06/05/24 Alprazolam (Xanax) 1 Mg Tab, 0.5 TAB PO BID PRN, #20 TAB Prov:CHERRIE SANCHEZ MD 06/05/24 Acetaminophen W/ Codeine (Tylenol W/Cod #3) 1 Tab Tb, 1 TAB PO Q6HPRN, #10 TAB 0 Refills Prov:CECIL RIVAS 05/31/24 Reported Medications Cyclobenzaprine HCl (Cyclobenzaprine Hydrochlo) 5 Mg Tab, 5 MG PO, TAB 06/03/24 Ibuprofen (Ibuprofen) 800 Mg Tab, 800 MG PO for pain, MG 06/03/24 Home Meds Patient denies taking any prescribed medications Current Medications Current Medications Medications (Trade) Dose Ordered Sig/Sierra Route PRN Reason Start Time Stop Time Status Last Admin Dexamethasone Sodium Phosphate (Decadron Injection) 4 mg Q8HR IV 06/13/24 22:00 06/14/24 03:43 DC 06/13/24 23:18 Acetaminophen/ Hydrocodone Bitart (Vining 5/325MG Tab) 1 tab Q4HP PRN PO MODERATE PAIN (4-6 PAIN SCALE) 06/14/24 03:45 06/14/24 12:38 Dexamethasone Sodium Phosphate (Decadron Injection) 4 mg Q8HR IV 06/14/24 06:00 06/14/24 06:17 Methylprednisolone Sodium Succinate (Solu Medrol) 80 mg Q8HR IV 06/14/24 22:00 UNV Review of Systems Constitutional: No symptom reported Ears, Nose, & Throat: No symptom reported Eyes: No symptom reported Neurological: Facial numbness Pulmonary/Respiratory: No symptoms reported Cardiovascular: No symptom reported Gastrointestinal: No symptom reported Genitourinary: No symptom reported Musculoskeletal: Back pain Skin: No symptom reported Psychiatric: No symptom reported Endocrine: No symptom reported Hematologic/Lymphatic: No symptom reported Vital Signs Vital Signs Date Time Temp Pulse Resp B/P (MAP) Pulse Ox O2 Delivery O2 Flow Rate FiO2 06/14/24 12:55 98.5 85 16 117/69 (85) 96 98.5 06/13/24 22:01 Room Air* 0 21 Physical Exam General Appearance: Cooperative. Well-developed. Well-nourished. No acute distress. Pulmonary/Respiratory: Clear, bilateral breaths sounds. Cardiovascular/Chest: Regular rate and rhythm. Peripheral Pulses: 2+ Radial (R). 2+ Radial (L). 2+ Pedal (R). 2+ Pedal (L) Abdominal Exam: Normal bowel sounds. Ankle Exam: Negative ankle edema Lower extremities: Negative lower extremity edema Neuro/Mental Status: A/OX4, coherent. Thoughts/Psych: Normal thought pattern. Appropriate mood and affect. Good judgment and insight. Appearance: No acute distress. Skin Exam: Skin warm and dry. Large bruise to right knee Labs/Diagnostic Data Labs Test 06/14/24 05:32 06/13/24 07:30 Range/Units White Blood Count 11.2 H 4.4-10.8 10^3/uL Red Blood Count 4.41 4.0-5.20 10^6/uL Hemoglobin 12.5 12.2-16.2 g/dL Hematocrit 37.0 36.0-46.0 % Mean Corpuscular Volume 83.8 80.0-100.0 fL Mean Corpuscular Hemoglobin 28.2 28.0-32.0 pg Mean Corpuscular Hemoglobin Concent 33.7 32.0-36.0 g/dL Red Cell Distribution Width 14.1 11.8-14.3 % Platelet Count 238 140-450 10^3/uL Mean Platelet Volume 9.1 6.9-10.8 fL Neutrophils (%) (Auto) 90.7 H 37.0-80.0 % Lymphocytes (%) (Auto) 6.9 L 10.0-50.0 % Monocytes (%) (Auto) 2.4 0.0-12.0 % Eosinophils (%) (Auto) 0.0 0.0-7.0 % Basophils (%) (Auto) 0.0 0.0-2.0 % Neutrophils # (Auto) 10.1 H 1.6-8.6 10 ^3/uL Lymphocytes # (Auto) 0.8 0.4-5.4 10 ^3/uL Monocytes # (Auto) 0.3 0-1.3 10 ^3/uL Eosinophils # (Auto) 0 0-0.8 10 ^3/uL Basophils # (Auto) 0 0-0.2 10 ^3/uL Nucleated Red Blood Cells 0.1 % Sodium Level 141 136-145 mmol/L Potassium Level 4.2 3.5-5.1 mmol/L Chloride Level 107 98-107 mmol/L Carbon Dioxide Level 25 20-31 mmol/L Anion Gap 9 5-15 Blood Urea Nitrogen 8 L 9-23 mg/dL Creatinine 0.70 0.550-1.02 mg/dL Glomerular Filtration Rate Calc 107 >90 mL/min BUN/Creatinine Ratio 11.4 10.0-20.0 Serum Glucose 136 H 74-106 mg/dL Calcium Level 9.4 8.7-10.4 mg/dL Total Bilirubin 0.4 0.2-1.0 mg/dL Aspartate Amino Transferase (AST) < 8 L 13-40 U/L Alanine Aminotransferase (ALT) 13 7-40 U/L Alkaline Phosphatase 57 46-116 U/L Total Protein 6.4 5.7-8.2 g/dL Albumin 4.2 3.2-4.8 g/dL Urine Color Light-yellow Yellow Urine Clarity Clear Clear Urine pH 6.0 5.0-9.0 Urine Specific [place] 1.037 H 1.001-1.035 Urine Protein Negative Negative Urine Ketones Trace Negative Urine Blood Negative Negative /uL Urine Nitrite Negative Negative Urine Bilirubin Negative Negative Urine Urobilinogen Normal Negative mg/dL Urine Leukocyte Esterase Negative Negative /uL Urine RBC 1 0 - 4 /hpf Urine Microscopic WBC 2 0-5 /HPF Urine Squamous Epithelial Cells Mod <5 /hpf Urine Bacteria None seen None Seen /hpf Urine Glucose Normal Normal mg/dL Assessment Preprocedural cardiovascular examination Multilevel degenerative disc disease Mild cord impingement Plan/Recommendation We will continue with the following plan/recommendations (Dr. Hunt): Case discussed with . Transthoracic echocardiogram reveals EF 55-60%. Revised cardiac risk index (Cristhian criteria): 0 points (3.9% risk of major cardiac event). Chest x-ray reveals no acute cardiopulmonary process. The patient has no underlying history of congestive heart failure, coronary artery disease or cardiac symptoms. Prior to emergency room arrival, the patient reports a good functional capacity. Per Cardiology standpoint, the patient is at an acceptable risk for moderate risk surgery. There is no additional cardiac workup indicated prior to surgery. Thank you for allowing us to care for this patient. Please call with any questions or concerns. Critical care time spent: 44 minutes This medical document was created using an electronic medical record system with voice recognition software and computerized dictation system. Although this document has been carefully reviewed, there might still be some phonetic and typographical errors. Occasional wrong-word or ``sound-alike substitutions may have occurred due to the inherent limitations of voice recognition software. These areas are purely typographical due to imperfections of the software programs and do not reflect any compromise in the patient's medical care. Please read the chart carefully and recognize, using context, where these substitutions have occurred. Plan discussed with: Patient NYHA Physical activity limitations: NA Date of Service: Jun 14, 2024 Billing Provider: EMELYN ZAMBRANO Cardiology Common Codes: 49135-VUJPTCW INP/OBS CARE (High) Cardiology Consultation Codes: 46604-[id number] CONSULT <45MIN EMELYN ZAMBRANO Jun 14, 2024 16:01
--- NOTE | 2024-06-14 16:59 | DVH ---
EXAM: XR Chest, 1 View CLINICAL INDICATION: Preop evaluation TECHNIQUE: Frontal view of the chest. COMPARISON: None FINDINGS: LUNGS AND PLEURAL SPACES: Unremarkable. No consolidation. No pneumothorax. HEART: Unremarkable. No cardiomegaly. MEDIASTINUM: Unremarkable. Normal mediastinal contour. BONES/JOINTS: Unremarkable. No acute fracture. OTHER FINDINGS: . None. IMPRESSION: No acute cardiopulmonary process.
[2024-06-14 17:04] LABS: Magnesium 1.9 mg/dL (1.6-2.6)
[2024-06-14] MEDS: methylPREDNISolone SOD SUCC 125 MG/2 ML VL IV SCH (21:46)
--- NOTE | 2024-06-14 23:32 | DVHPN2 ---
Progress Note - Dictate Date Seen: Jun 14, 2024 Subjective Ms. Rasheed is a 48 years old right-handed female with a history of kidney stone, she came to the [facility] on 06/13/2024 with a chief company of paresthesia in the face, and bilateral upper extremities. At this time, she was alert, fully oriented, she provided the following history When she woke up on 06/13/2024, she had intense burning pain in the neck, numbness in bilateral face, bilateral whole upper extremities, and weakness in both arms, nausea. LS beginning, she was only able to move the both arms a little bit, but later she was seen improvement in the weakness On 06/02/2024, she developed blurry vision, difficulty with speech/depression herself, though she was mentally fine, she was admitted to the [facility] for four days, and a neurologist said she had a anxiety. She was given pain medication and Xanax with improvement On 05/26/2024, she was a fall at work with head and neck injury, she remembers falling and being helped by other people, he does not know if she has a loss of consciousness, the patient was seen in the urgent care center where she had MR to the knee. On 05/28/2024, the patient was developed dizziness/lightheadedness, pressure in the back of the head, she was seen in the [facility] and she was said to have concussion She denies a history of anxiety, but she did have anxiety three years ago after he lost her Urinalysis, 06/13/2024: Unremarkable WBC/HB/PLT/sleep, 06/13/2024: 11.4/12.8/241/84.7 BMP, 06/13/2024: Unremarkable Liver function tests, 06/05/2024: Unremarkable CT, maxillofacial, 06/13/2024: No acute findings CT C-spine, 06/04/2024: No evidence of acute cervical spine fracture or traumatic malalignment MRI head, 06/03/2024: No acute abnormal MRI findings of the brain MR brain, 06/13/2024: Unremarkable noncontrast MRI brain MRI C-spine, 06/13/2024: Straightening of normal lordosis that could be positional, reflect muscle spasm or pain. Correlate clinically. No acute osseous abnormality. Multilevel degenerative disc disease with evidence of mild cord impingement C4-C5 and C5-C6 levels with a subtle adjacent cord signal change that may represent edema or myelomalacia. In addition, impingement noted C4-C5 and C5-C6 levels. C4-C5: Moderate reduction in disc height with modic type 2 discogenic endplate changes and subcentimeter Schmorl's nodes of the endplates, mild central disc protrusion and mild bilateral posterior facet and uncovertebral hypertrophy with resultant mild central canal stenosis, indentation of the ventral spinal cord with mild bilateral neural foramina stenosis with abutment of the bilateral exiting nerves. C5-C6: Mild right paracentral disc protrusion abutting the adjacent ventral spinal cord and impingement of the right traversing ventral nerve roots. Mild bilateral posterior facet arthropathy. The neural foramina are patent. C6-C7: Mild central disc protrusion with mild central canal stenosis without nerve impingement. The neural foramina are patent. Subcentimeter perineural cysts are seen in the bilateral neural foramina. C3-C4: Mild central disc protrusion and mild bilateral posterior facet arthropathy without significant central canal or neural foramina stenosis. No nerve impingement. General: the patient is well developed and nourished. No acute distress. HEENT: Normocephalic, neck is supple, no carotid bruits. No mass. RESPIRATORY: Normal respiratory effort with symmetrical lung expansion. Lungs clear to auscultation. CARDIOVASCULAR: Regular rate and rhythm with no murmurs. S1, S2. ABDOMEN: Soft, nontender, normal bowel sound MUSCULOSKELETAL EXAM: No tenderness to palpation in the cervical spine MENTAL STATUS: Awake and alert. Oriented to person, place, time and general circumstances. Able to give personal history. SPEECH, LANGUAGE, HIGHER CORTICAL FUNCTION: no aphasia or dysathria. CRANIAL NERVES: #2: Intact visual gee to confrontation. The optic discs were sharp. #3,4,6: Pupils are equal, round and reactive. EOMs full and conjugate. No nystagmus. #5: Facial sensation intact in all three divisions bilaterally. Mandibular strength intact. #7: Facial muscles symmetrical and strength intact. #8: Hearing grossly normal to voice. #9,10: Uvula and soft palate rise in the midline. Swallow and voice are normal. #11: Trapezius and sternomastoid strength intact bilaterally. #12: Tongue midline. No fasciculations or atrophy. SENSATION: Sensation to touch and pinprick is normal. MOTOR: Normal tone in the upper and lower extremity. Normal muscle bulk. No fasciculations. No abnormal movements or posturing. Muscle strength of the major groups in the upper extremities is 5/5. Muscle strength of the major groups in the lower extremities is 5/5. REFLEXES: Deep tendon reflexes are symmetrical. No pathological reflexes. CEREBELLAR/COORDINATION: Finger to nose is normal bilaterally. GAIT/STATION: She walks slowly, but otherwise unremarkable Bilateral facial, upper extremity paresthesia, etiology not clear Abnormal cervical spine MRI, Monitoring Supportive treatment Telemetry MR brain scan More recommendation per clinical This medical document was created using an electronic medical record system with iPosition dictation system. Although this document has been carefully reviewed, there may still be some phonetic and typographical errors. These areas are purely typographical due to imperfections of the software programs, and do not reflect any compromise in the patient's medical care vital signs Vital Sign Date Time Temp Pulse Resp B/P (MAP) Pulse Ox O2 Delivery O2 Flow Rate FiO2 06/14/24 21:00 98.9 101 18 124/79 (94) 97 98.9 06/14/24 20:00 Room Air* 0 21 Total Intake and Output 06/13/24 06/13/24 06/14/24 15:00 23:00 07:00 Intake Total 150 ml Balance 150 ml medications Current Medications Medications Dose Ordered Sig/Sierra Route Start Time Stop Time Status Last Admin Dose Admin Acetaminophen 650 mg Q6HP PRN PO 06/13/24 11:00 Docusate Sodium 100 mg BID PRN PO 06/13/24 11:00 Ondansetron HCl 4 mg Q4HP PRN IV 06/13/24 11:00 Lorazepam 1 mg ONCE PRN IV 06/13/24 11:30 Acetaminophen/ Hydrocodone Bitart 1 tab Q4HP PRN PO 06/14/24 03:45 06/14/24 20:35 1 TAB Methylprednisolone Sodium Succinate 80 mg Q8HR IV 06/14/24 22:00 06/14/24 21:46 80 MG laboratory and microbiology Laboratory Tests 06/14/24 05:32 Test 06/14/24 05:32 Range/Units Serum Glucose 136 H 74-106 mg/dL Assessment/Plan Bilateral facial, upper extremity paresthesia, etiology not clear Abnormal cervical spine MRI, AGNES JOSEPH MD Jun 14, 2024 23:32
[2024-06-15] VITALS (8 sets, daily range): BP systolic 117–127; BP diastolic 74–86; PULSE 76–89; RESP 17–18; TEMP 98.2–98.9; O2SAT 95–100
--- NOTE | 2024-06-15 00:08 | DVHPN2 ---
Progress Note - Dictate Date Seen: Jun 15, 2024 Medical Necessity Reason Pt with a Central, PICC or Fol: No Subjective Ms. Rasheed is a 48 years old right-handed female with a history of kidney stone, she came to the [facility] on 06/13/2024 with a chief company of paresthesia in the face, and bilateral upper extremities. I have seen and examined the patient, I have discussed with her and her nurse, she was doing fine, alert and fully oriented, Spine team's input appreciated, surgery was recommended however the patient was has not made her final decision yet Urinalysis, 06/13/2024: Unremarkable WBC/HB/PLT/sleep, 06/13/2024: 11.4/12.8/241/84.7 BMP, 06/13/2024: Unremarkable Liver function tests, 06/05/2024: Unremarkable CT, maxillofacial, 06/13/2024: No acute findings CT C-spine, 06/04/2024: No evidence of acute cervical spine fracture or traumatic malalignment MRI head, 06/03/2024: No acute abnormal MRI findings of the brain MR brain, 06/13/2024: Unremarkable noncontrast MRI brain MRI C-spine, 06/13/2024: Straightening of normal lordosis that could be positional, reflect muscle spasm or pain. Correlate clinically. No acute osseous abnormality. Multilevel degenerative disc disease with evidence of mild cord impingement C4-C5 and C5-C6 levels with a subtle adjacent cord signal change that may represent edema or myelomalacia. In addition, impingement noted C4-C5 and C5-C6 levels. C4-C5: Moderate reduction in disc height with modic type 2 discogenic endplate changes and subcentimeter Schmorl's nodes of the endplates, mild central disc protrusion and mild bilateral posterior facet and uncovertebral hypertrophy with resultant mild central canal stenosis, indentation of the ventral spinal cord with mild bilateral neural foramina stenosis with abutment of the bilateral exiting nerves. C5-C6: Mild right paracentral disc protrusion abutting the adjacent ventral spinal cord and impingement of the right traversing ventral nerve roots. Mild bilateral posterior facet arthropathy. The neural foramina are patent. C6-C7: Mild central disc protrusion with mild central canal stenosis without nerve impingement. The neural foramina are patent. Subcentimeter perineural cysts are seen in the bilateral neural foramina. C3-C4: Mild central disc protrusion and mild bilateral posterior facet arthropathy without significant central canal or neural foramina stenosis. No nerve impingement. vital signs Vital Sign Date Time Temp Pulse Resp B/P (MAP) Pulse Ox O2 Delivery O2 Flow Rate FiO2 06/14/24 21:00 98.9 101 18 124/79 (94) 97 98.9 06/14/24 20:00 Room Air* 0 21 Total Intake and Output 06/14/24 06/14/24 06/15/24 15:00 23:00 07:00 Intake Total 784 ml 1700 ml Balance 784 ml 1700 ml medications Current Medications Medications Dose Ordered Sig/Sierra [place] Start Time Stop Time Status Last Admin Dose Admin Acetaminophen 650 mg Q6HP PRN PO 06/13/24 11:00 Docusate Sodium 100 mg BID PRN PO 06/13/24 11:00 Ondansetron HCl 4 mg Q4HP PRN IV 06/13/24 11:00 Lorazepam 1 mg ONCE PRN IV 06/13/24 11:30 Acetaminophen/ Hydrocodone Bitart 1 tab Q4HP PRN PO 06/14/24 03:45 06/14/24 20:35 1 TAB Methylprednisolone Sodium Succinate 80 mg Q8HR IV 06/14/24 22:00 06/14/24 21:46 80 MG objective General: the patient is well developed and nourished. No acute distress. MUSCULOSKELETAL EXAM: No tenderness to palpation in the cervical spine MENTAL STATUS: Awake and alert. Oriented to person, place, time and general circumstances. Able to give personal history. SPEECH, LANGUAGE, HIGHER CORTICAL FUNCTION: no aphasia or dysathria. CRANIAL NERVES: Pupils are equal, round and reactive. EOMs full and conjugate. No nystagmus. Facial sensation intact in all three divisions bilaterally. Mandibular strength intact. Facial muscles symmetrical and strength intact. SENSATION: Sensation to touch and pinprick is normal. MOTOR: Normal tone in the upper and lower extremity. Normal muscle bulk. No fasciculations. No abnormal movements or posturing. Muscle strength of the major groups in the extremities is 5/5. REFLEXES: Deep tendon reflexes are symmetrical. No pathological reflexes. CEREBELLAR/COORDINATION: Finger to nose is normal bilaterally. GAIT/STATION: Deferred laboratory and microbiology Laboratory Tests 06/14/24 05:32 Test 4/23/25 05:32 Range/Units Serum Glucose 136 H 74-106 mg/dL Problem List Bilateral facial, upper extremity paresthesia, etiology not clear Abnormal cervical spine MRI, Assessment/Plan Monitoring Supportive treatment Telemetry Spine surgery on case More recommendation per clinical This medical document was created using an electronic medical record system with [employer] dictation system. Although this document has been carefully reviewed, there may still be some phonetic and typographical errors. These areas are purely typographical due to imperfections of the software programs, and do not reflect any compromise in the patient's medical care Prognosis poor Plan discussed with: Patient, Other AGNES JOSEPH MD Jun 15, 2024 00:08
--- NOTE | 2024-06-15 08:42 | ECG ---
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
[2024-06-15] MEDS: ACETAMINOPHEN 325 MG TAB PO PRN (10:35)
--- NOTE | 2024-06-15 11:10 | DVHPN2 ---
Subjective The patient is seen and examined at bedside. Complain of severe pain in the back. Reviewed: Care Plan, H&P, Labs, Medications, Previous Orders, Radiology Eyes: No Pain, No Vision change, No Conjunctivae inflammation, No Eyelid inflammation, No Other, No Redness ENT: No Ear pain, No Ear discharge, No Nose pain, No Nose discharge, No Nose congestion, No Mouth pain, No Mouth swelling, No Throat pain, No Throat swelling, No Other Cardiovascular: No Chest Pain, No Palpitations, No Orthopnea, No Paroxysmal Noc. Dyspnea, No Edema, No Lt Headedness, No Other Respiratory: No Cough, No Dry, No Shortness of breath, No SOB with excertion, No Wheezing, No Hemoptysis, No Pleuritic Pain, No Sputum, No Other Gastrointestinal: No Nausea, No Vomiting, No Abdominal Pain, No Diarrhea, No Constipation, No Melena, No Hematochezia, No Other Genitourinary: No Dysuria, No Frequency, No Incontinence, No Hematuria, No Retention, No Other Musculoskeletal: No other, No neck pain, No shoulder pain, No arm pain, No back pain, No hand pain, No leg pain, No foot pain Skin: No Rash, No Lesions, No Jaundice, No Bruising, No Other Objective Vitals Vital Signs Date Time Temp Pulse Resp B/P (MAP) Pulse Ox O2 Delivery O2 Flow Rate FiO2 06/15/24 08:55 98.9 77 17 127/78 (94) 95 98.9 06/15/24 08:00 Room Air* 0 21 Intake/Output Intake and Output 06/15/24 07:00 Intake Total 3714 ml Balance 3714 ml Intake Oral 3714 ml # Voids 6 General Appearance: Alert, Oriented X3, Cooperative, moderate distress HEENT: Atraumatic, PERRLA, EOMI, Mucous membr. moist/pink Neck: Supple Lungs: Clear to auscultation, Normal air movement Cardiovascular: Regular rate, Normal S1, Normal S2, No murmurs, Gallops, Rubs Abdomen: Normal bowel sounds, Soft, No tenderness Musculoskeletal: Weak motor strength RUE, Weak motor strength LUE Neuro: Cranial nerves 3-12 NL Psych/Mental Status: Mental status NL Medications Current Medications Medications Dose Ordered Sig/[place] Start Time Stop Time Status Last Admin Dose Admin Acetaminophen 650 mg Q6HP PRN PO 06/13/24 11:00 06/15/24 10:35 650 MG Docusate Sodium 100 mg BID PRN PO 06/13/24 11:00 Ondansetron HCl 4 mg Q4HP PRN IV 06/13/24 11:00 Lorazepam 1 mg ONCE PRN IV 06/13/24 11:30 Acetaminophen/ Hydrocodone Bitart 1 tab Q4HP PRN PO 06/14/24 03:45 06/15/24 01:29 1 TAB Methylprednisolone Sodium Succinate 80 mg Q8HR IV 06/14/24 22:00 06/15/24 05:43 80 MG Laboratory Results Laboratory Tests 06/14/24 05:32 Urinalysis Test 06/13/24 07:30 Urine Color Light-yellow (Yellow) Urine Clarity Clear (Clear) Urine pH 6.0 (5.0-9.0) Urine Specific [place] 1.037 (1.001-1.035) Urine Protein Negative (Negative) Urine Ketones Trace (Negative) Urine Blood Negative /uL (Negative) Urine Nitrite Negative (Negative) Urine Bilirubin Negative (Negative) Urine Urobilinogen Normal mg/dL (Negative) Urine Leukocyte Esterase Negative /uL (Negative) Urine RBC 1 /hpf (0 - 4) Urine Microscopic WBC 2 /HPF (0-5) Urine Squamous Epithelial Cells Mod /hpf (<5) Urine Bacteria None seen /hpf (None Seen) Urine Glucose Normal mg/dL (Normal) Microbiology Microbiology Date/Time Source Procedure Growth Status 06/14/24 04:48 Nose MRSA Screen - Final Complete Assessment/Plan Assessment/Plan Cervical radiculopathy, Degenerative joint disease with Multilevel degenerative disc disease with evidence of mild cord impingement C4-C5 and C5-C6 levels with a subtle adjacent cord signal change that may represent edema or myelomalacia per MRI Bilateral upper extremities numbness and tingling, Facial numbness probable due to nerve impingement. MRI of the brain showed no acute process. Continuing current management. Continuing with Flexeril and pain medication. Discuss with the spine surgeon team. Patient need medical clearance and cardiac clearance for surgery. We will consult fiber worker. Regarding to medical clearance. I discussed with the patient regarding to her medical problem. According to the patient she did not have any medical problem. No hypertension, no hyperlipidemia, no diabetes. Patient denied any headache, blurred vision. No chest pain, heart palpitation. No abdominal pain, constipation, diarrhea. No lower extremity edema. Patient medically stable for surgery This medical document was created using an electronic medical record system with [employer] direct computerized dictation system. Although this document has been carefully reviewed, there may still be some phonetic and typographical errors. These areas are purely typographical due to imperfections of the software programs, and do not reflect any compromise in the patient's medical care. My Orders Orders - TRACEY MEJIA MD Procedure Category Date Status Time Communication Order ORDERS 06/14/24 Transmitted 13:33 * Cardiology Consult CONS 06/14/24 Transmitted 14:53 Electrocardigram EKG 06/15/24 Logged 10:52 TRACEY MEJIA MD Jun 15, 2024 11:10
[2024-06-15] MEDS: CYCLOBENZAPRINE HCL 10 MG TAB PO SCH (13:18)
--- NOTE | 2024-06-15 14:58 | DVHSR ---
APPROVED REPORT EXAM: Two-dimensional and M-mode echocardiogram with Doppler and color Doppler. Blood Pressure: 126/80 mmHg INDICATION Pre-Op Eval cardiac function for pre op RISK FACTORS Height: 65, Weight: 166 DIMENSIONS LVDd4.6 (3.8-5.7cm)LA (2D)3.8 (1.9-4.0cm)Aortic Root3.7 (2.0-3.7cm) LVDs3.2 (2.5-4.0cm)LA (MM) (1.9-4.0cm)Aortic Cusp Exc2.0 (1.5-2.0cm) EF (%) 60.0 (55-70%)Rt. Atrium3.9 (1.9-4.0cm)Asc. Aorta cm IVSd0.8 (0.7-1.1cm)RV (D) (1.8-2.4cm) PWd0.9 (0.7-1.1cm) Mitral Valve MitralMitral Stenosis E wave0.89m/sMV Mean GR.mmHg A wave1.15m/sMV Peak GR.mmHg E/A ratio0.82D MVAcm2 DECEL [id number] 1/2 [id number] IVRTmsDop MVA3.81cm2 Aortic Valve Aortic ValveAortic Stenosis V11.07m/Adolph Mean GR.3mmHg V21.38m/Adolph Peak GR.8mmHg LVOT Diameter2.3 (1.8-2.4cm)Doppler AVA3.22cm2 Pulmonic Valve V20.86m/s Other Information Quality : Technically LimitedRhythm : Technically limited study due to body habitus. Conclusion LVEF is normal 55-60%. RV size and function normal Valves grossly normal
[2024-06-15] MEDS: DOCUSATE SOD 100 MG CAP PO PRN (22:18)
[2024-06-16 01:01] VITALS: BP 101/68; PULSE 99; RESP 17; TEMP 98.6; O2SAT 98
[2024-06-16 05:00] VITALS: BP 93/58; PULSE 71; RESP 18; TEMP 98.4; O2SAT 96
--- NOTE | 2024-06-16 07:47 | ECG ---
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
[2024-06-16 07:49] VITALS: O2SAT 95
[2024-06-16 09:08] VITALS: BP 114/76; PULSE 82; RESP 16; TEMP 99; O2SAT 96
--- NOTE | 2024-06-16 11:32 | DVHDS2 ---
Discharge Summary Date of Admission Jun 13, 2024 at 07:27 Labs/Diagnostic Data: Laboratory Results Test 06/14/24 05:32 06/13/24 07:30 White Blood Count 11.2 10^3/uL (4.4-10.8) Red Blood Count 4.41 10^6/uL (4.0-5.20) Hemoglobin 12.5 g/dL (12.2-16.2) Hematocrit 37.0 % (36.0-46.0) Mean Corpuscular Volume 83.8 fL (80.0-100.0) Mean Corpuscular Hemoglobin 28.2 pg (28.0-32.0) Mean Corpuscular Hemoglobin Concent 33.7 g/dL (32.0-36.0) Red Cell Distribution Width 14.1 % (11.8-14.3) Platelet Count 238 10^3/uL (140-450) Mean Platelet Volume 9.1 fL (6.9-10.8) Neutrophils (%) (Auto) 90.7 % (37.0-80.0) Lymphocytes (%) (Auto) 6.9 % (10.0-50.0) Monocytes (%) (Auto) 2.4 % (0.0-12.0) Eosinophils (%) (Auto) 0.0 % (0.0-7.0) Basophils (%) (Auto) 0.0 % (0.0-2.0) Neutrophils # (Auto) 10.1 10 ^3/uL (1.6-8.6) Lymphocytes # (Auto) 0.8 10 ^3/uL (0.4-5.4) Monocytes # (Auto) 0.3 10 ^3/uL (0-1.3) Eosinophils # (Auto) 0 10 ^3/uL (0-0.8) Basophils # (Auto) 0 10 ^3/uL (0-0.2) Nucleated Red Blood Cells 0.1 % Sodium Level 141 mmol/L (136-145) Potassium Level 4.2 mmol/L (3.5-5.1) Chloride Level 107 mmol/L (98-107) Carbon Dioxide Level 25 mmol/L (20-31) Anion Gap 9 (5-15) Blood Urea Nitrogen 8 mg/dL (9-23) Creatinine 0.70 mg/dL (0.550-1.02) Glomerular Filtration Rate Calc 107 mL/min (>90) BUN/Creatinine Ratio 11.4 (10.0-20.0) Serum Glucose 136 mg/dL (74-106) Hemoglobin A1c 5.2 % A1C (<5.7) Calcium Level 9.4 mg/dL (8.7-10.4) Magnesium Level 1.9 mg/dL (1.6-2.6) Total Bilirubin 0.4 mg/dL (0.2-1.0) Aspartate Amino Transferase (AST) < 8 U/L (13-40) Alanine Aminotransferase (ALT) 13 U/L (7-40) Alkaline Phosphatase 57 U/L (46-116) Total Protein 6.4 g/dL (5.7-8.2) Albumin 4.2 g/dL (3.2-4.8) Triglycerides Level 39 mg/dL (< 150) Cholesterol Level 137 mg/dL (< 200) LDL Cholesterol 72 mg/dL (< 100) HDL Cholesterol 57 mg/dL (40-59) Thyroid Stimulating Hormone (TSH) 0.53 uIU/mL (0.55-4.78) Urine Color Light-yellow (Yellow) Urine Clarity Clear (Clear) Urine pH 6.0 (5.0-9.0) Urine Specific [place] 1.037 (1.001-1.035) Urine Protein Negative (Negative) Urine Ketones Trace (Negative) Urine Blood Negative /uL (Negative) Urine Nitrite Negative (Negative) Urine Bilirubin Negative (Negative) Urine Urobilinogen Normal mg/dL (Negative) Urine Leukocyte Esterase Negative /uL (Negative) Urine RBC 1 /hpf (0 - 4) Urine Microscopic WBC 2 /HPF (0-5) Urine Squamous Epithelial Cells Mod /hpf (<5) Urine Bacteria None seen /hpf (None Seen) Urine Glucose Normal mg/dL (Normal) Other Laboratory Tests 06/14/24 05:32 Discharge Statement: "Patient was advised to return to the ER or call 911 if any headaches, dizziness, shortness of breath, chest pain, abdominal pain, bleeding, fevers, or worsening of medical condition. Patient was counseled about treatment plan, medications, possible side effects, patientverbalized understanding. All questions were answered to the best of my ability. This discharge took greater then 30 minutes in planning, reviewing documentation, counseling the patient, and discussing with other team members." ASSESSMENT ASSESSMENT Assessment TRACEY MEJIA MD Jun 16, 2024 11:32
[2024-06-16] MEDS ORDERED: CYCL-611 PO (11:33)
[2024-06-16] MEDS ORDERED: HYDR-4902 PO (11:33)
[2024-06-16 12:03] VITALS: BP 119/79; PULSE 87; RESP 15; TEMP 98.7; O2SAT 96
[2024-06-16 12:06] VITALS: TEMP 37.1
[2024-06-16] MEDS ORDERED: PRED20TA2 PO (12:28)
--- NOTE | 2024-06-16 14:28 | PRN ---
Misceleneous Note Note Note Received from bedside nurse today stating that the patient is not consenting to surgery anymore. She has a concern that her workman's comp is not going to pay for it. Dr. Ribeiro made aware This patient does need to be followed up sooner than later regarding her spinal cord changes, optimally the patient would have received surgery today however she did decline Patient does need to follow up as soon as possible seek resolution for this finding. This is an urgent matter that needs to be addressed. Call with questions Katherine Schaeffer [facility] Orthopaedic Spine Surgery nurse practitioner For Dr Karthik Ribeiro Patient was examined, chart reviewed, labs evaluated, and diagnostic studies and findings analyzed. Case was discussed with Dr. Khanh Ribeiro who formulated the plan of care. This medical document was created using an electronic medical record system with [employer] dictation system. Although this document has been carefully reviewed, there might still be some phonetic and typographical errors. These areas are purely typographical due to imperfections of the software programs, and do not reflect any compromise in the patient's medical care. SANDRA SCHAEFFER NP Jun 16, 2024 14:28
== END 2024-06-16 14:00 | disposition home or self-care (01) | DRG 552 ==
LOC: ER 20:28 → OVERFLOW 06-13 07:27 → ER 06-13 07:29 → TELE-EAST 06-13 21:31 → EAST 06-14 22:30
PROVIDERS: ADMIT Internal Medicine; ATTEND Internal Medicine
DX: M48.02 Spinal stenosis, cervical region (principal); L02.01 Cutaneous abscess of face; L03.818 Cellulitis of other sites; M50.122 Cervical disc disorder at C5-C6 level with radiculopathy; M50.321 Other cervical disc degeneration at C4-C5 level; F41.9 Anxiety disorder, unspecified; F32.A Depression, unspecified; E11.9 Type 2 diabetes mellitus without complications; Z79.1 Long term (current) use of non-steroidal anti-inflammatories (NSAID); Z79.899 Other long term (current) drug therapy; Z98.51 Tubal ligation status; Z87.442 Personal history of urinary calculi; Z82.49 Family history of ischemic heart disease and other diseases of the circulatory system; Z80.49 Family history of malignant neoplasm of other genital organs; Z83.3 Family history of diabetes mellitus
CPT/HCPCS: 36415; 70487; 70551; 71045; 72141; 80048; 80053; 80061; 81001; 83036; 83735; 84443; 85025; 87081; 93005; 93306; G0378; J1100; J2405

== ENCOUNTER 2024-06-23 01:01 | Emergency (ER) | payer MEDICAID, OTHER ==
[~2024-06-23] VITALS: Ht 165.1 cm; Wt 73.9 kg
[~2024-06-23 01:01] MED LIST changes: +CYCL-611 PO; -CYCL-614 PO; +PRED20TA2 PO
--- NOTE | 2024-06-23 01:44 | ED.PDOC ---
HPI (NEURO) HPI Comments 48 YEAR OLD FEMALE PRESENTS TO ER REQUESTING A WORK NOTE. PATIENT STATES SHE HAS BEEN EXPERIENCING INTERMITTENT OCCIPITAL HEADACHES, NECK PAIN AND INTERMITTENT NUMBNESS/TINGLING TO BILATERAL ARMS S/P FALL INJURY AT WORK ON 05/26/24 AND NOTES HER WORK RETURNED HER TO FULL DUTY ON 06/20/24 AND IS REQUESTING A WORK NOTE IN ER TODAY FOR DAYS OFF OF WORK DUE TO CONTINUED SYMPTOMS POST FALL AT WORK. PATIENT HAS BEEN SEEN AT THIS FACILITY SEVERAL TIMES FOR HER SYMPTOMS AND WAS RECENTLY DISCHARGED FROM THIS HOSPITAL 1 WEEK AGO. SHE DENIES ANY WORSENING SYMPTOMS SINCE BEEN DISCHARGED FROM THIS HOSPITAL AND STATES HER ONLY REASON FOR HER CURRENT ER VISIT TODAY IS FOR A WORK NOTE. SHE RATES HER CURRENT OCCIPITAL HEADACHE PAIN A 7/10 WITH RADIATION TOWARDS HER NECK AND PRESENTS TO ER AMBULATORY ON ARRIVAL, ALERT AND ORIENTED X4, WITH STEADY GAIT, IN NO DISTRESS. DENIES FEVER, N/V, DIZZINESS OR ANY FURTHER SYMPTOMS/COMPLAINTS Chief Complaint: Headache Time Seen by MD: 01:03 Primary Care Provider: WORK COMP Reviewed Notes: Nurses Notes, Medications, Allergies Information Source: Patient Mode of Arrival: Ambulatory Past Medical History PAST MEDICAL HISTORY: Kidney Stones Past Medical History (Other): CERVICAL STENOSIS CERVICAL RADICULOPATHY Surgical History: Appendectomy, Tubal Ligation SPECIAL EDUCATION SECRETARY History: No Pertinent SPECIAL EDUCATION SECRETARY History Family History Family History: Unknown Social History Smoker: Non-Smoker Alcohol: Denies ETOH Use Drugs: Denies Drug Use Lives In: Home Constitutional: denies: chills, diaphoresis, fatigue, fever, malaise, sweats, weakness, others EENTM: denies: blurred vision, double vision, ear bleeding, ear discharge, ear drainage, ear pain, ear ringing, eye pain, eye redness, hearing loss, mouth pain, mouth swelling, nasal discharge, nose bleeding, nose congestion, nose pain, photophobia, tearing, throat pain, throat swelling, voice changes, others Respiratory: denies: cough, hemoptysis, orthopnea, SOB at rest, shortness of breath, SOB with excertion, stridor, wheezing, others Cardiovascular: denies: chest pain, dizzy spells, diaphoresis, Dyspnea on exertion, edema, irregular heart beat, left arm pain, lightheadedness, palpitations, PND, syncope, others Gastrointestinal: denies: abdomen distended, abdominal pain, blood streaked bowels, constipated, diarrhea, dysphagia, difficulty swallowing, hematemesis, melena, nausea, poor appetite, poor fluid intake, rectal bleeding, rectal pain, vomiting, others Genitourinary: denies: abnormal vagina bleeding, burning, dyspareunia, dysuria, flank pain, frequency, hematuria, incontinence, pain, , vagina discharge, urgency, others Neurological: reports: others ( STATED IN HPI) Musculoskeletal: denies: back pain, gout, joint pain, joint swelling, muscle pain, muscle stiffness, neck pain, others Integumetry: denies: bruises, change in color, change in hair/nails, dryness, laceration, lesions, lumps, rash, wounds, others Allergic/Immunocompromised: denies: Difficulty Healing, Frequent Infections, Hives, Itching, others Hematologic/Lymphatic: denies: anemia, blood clots, easy bleeding, easy bruising, swollen glands, others Endocrine: denies: excessive hunger, excessive sweating, excessive thirst, excessive urination, flushing, intolerance to cold, intolerance to heat, unexplained weight gain, unexplained weight loss, others Psychiatric: denies: anxiety, bipolar disorder, depression, hopeless, panic disorder, schizophrenia, sleepless, suicidal, others Physical Exam General Appearance: No Apparent Distress HEENT: Normal ENT Inspection, PERRL/EOMI, Pharynx Normal, TMs Normal Neck: Full Range of Motion, Non-Tender, Normal Respiratory: Chest Non-Tender, Lungs Clear, No Accessory Muscle Use, No Respiratory Distress, Normal Breath Sounds Cardiovascular: No Murmur, No Gallop, Regular Rate/Rhythm Breast Exam: Deferred Gastrointestinal: NOT DONE Genitalia: Deferred Pelvic: Deferred Rectal: Deferred Extremities: No calf tenderness, Normal capillary refill, Normal inspection, Normal range of motion, Non-tender, No pedal edema Neurologic: Alert, 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 Was a procedure done?: No Sedation Sedation?: No Differential Diagnosis (SZ) Headache: CVA, Subarachnoid Hemorrhage, Subdural Hemorrhage, Mass Lesion, Other (FRACTURE, NEUROVASCULAR INJURY) X-Ray, Labs, Meds, VS Vital Signs Date Time Temp Pulse Resp B/P (MAP) Pulse Ox O2 Delivery O2 Flow Rate FiO2 06/23/24 01:25 98.4 108 20 140/98 (112) 95 98.4 PREVIOUS CHART HISTORY REVIEWED ADVISED TO FOLLOW UP WITH PCP, WORKMAN'S COMP PCP, NEUROLOGY AND ORTHOPEDIC SPINE SURGEON IN 1-2 DAYS PATIENT ALERT AND ORIENTED X4 PRIOR TO DISCHARGE. PATIENT VERBALIZED UNDERSTANDING AND AGREEABLE WITH CURRENT PLAN OF CARE ADVISED TO RETURN TO ER IMMEDIATELY IF SYMPTOMS WORSEN Time of 1ST Reevaluation: 01:20 Reevaluation 1ST: N/A Patient Education/Counseling: Diagnosis, Treatment, Prognosis, Need For Follow Up Family Education/Counseling: No Family Present Departure 1 Departure Time of Disposition: 01:42 Impression: Primary Impression: Postconcussion syndrome Additional Impressions: Cervical stenosis of spinal canal Cervical radiculopathy Disposition: 01 HOME / SELF CARE / HOMELESS Condition: Stable Discharged With: Friend Critical Care Note Critical Care Time?: No Stability Stability form required: No Heart Score Heart Score: Heart Score Response (Comments) Value History N/A 0 EKG N/A 0 Age N/A 0 Risk Factors N/A 0 Troponin N/A 0 Total 0 CECIL RIVAS June 23, 2024 01:44
[2024-06-23 01:50] VITALS: BP 140/98; PULSE 108; RESP 20; TEMP 98.4; O2SAT 95
== END 2024-06-23 02:04 | disposition home or self-care (01) ==
LOC: ER 01:01
DX: M48.02 Spinal stenosis, cervical region (principal); M54.12 Radiculopathy, cervical region; F07.81 Postconcussional syndrome; Z90.49 Acquired absence of other specified parts of digestive tract; Z98.890 Other specified postprocedural states